=== PATIENT | male | born 1970 | race Two or more races ===

== ENCOUNTER 2018-11-19 10:02 | Inpatient (IN) | payer SELFPAY ==
[~2018-11-19] VITALS: Ht 165.1 cm; Wt 60.3 kg
[2018-11-19] MEDS ORDERED: IV NORMAL SALINE 1000ML BAG 1,000 ML IV ONE (11:00)
[2018-11-19] MEDS ORDERED: MORPHINE SULFATE 2 MG/ML VIAL. IV ONE (11:00)
[2018-11-19] MEDS ORDERED: CLINDAMYCIN 600MG PREMIX 50 ML IV ONE (11:00)
--- NOTE | 2018-11-19 11:03 | PHYS DOC ---
Past Medical History Past Medical History: No Pertinent History Alcohol Use: Occasionally Drug Use: Marijuana Adult General Chief Complaint Chief Complaint: LOWER EXT PAIN HPI HPI Patient is a 48 year old male presents to the ER with right knee swelling for week. The knee is hot to the touch, and painful. 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 Rates his pain a 7 out of 10 in severity and throbbing and sharp. Took Aleve last night Review of Systems Review of Systems Constitutional: Denies fever or chills [] Eyes: Denies change in visual acuity, redness, or eye pain [] HENT: Denies nasal congestion or sore throat [] Respiratory: Denies cough or shortness of breath [] Cardiovascular: No additional information not addressed in HPI [] GI: Denies abdominal pain, nausea, vomiting, bloody stools or diarrhea [] : Denies dysuria or hematuria [] Musculoskeletal: Reports R knee pain Integument: Denies rash or skin lesions [] Neurologic: Denies headache, focal weakness or sensory changes [] Endocrine: Denies polyuria or polydipsia [] Complete systems were reviewed and found to be within normal limits, except as documented in this note. Current Medications Current Medications Current Medications Medications (Trade) Dose Ordered Sig/Amber Start Time Stop Time Status Last Admin Dose Admin Clindamycin Phosphate 50 ml @ 100 mls/hr 1X ONCE 11/19/18 11:00 11/19/18 11:29 DC 11/19/18 11:40 100 MLS/HR Morphine Sulfate (Morphine Sulfate) 2 mg 1X ONCE 11/19/18 11:00 11/19/18 11:02 DC 11/19/18 11:40 2 MG Sodium Chloride 1,000 ml @ 1,000 mls/hr 1X ONCE 11/19/18 11:00 11/19/18 11:59 DC 11/19/18 11:40 1,000 MLS/HR Allergies Allergies Allergies Coded Allergies Type Severity Reaction Last Updated Verified No Known Drug Allergies 11/19/18 No Physical Exam Physical Exam Constitutional: Well developed, well nourished, no acute distress, non-toxic appearance. [] HENT: Normocephalic, atraumatic, bilateral external ears normal, oropharynx moist, no oral exudates, nose normal. [] Eyes: PERRLA, EOMI, conjunctiva normal, no discharge. [] Neck: Normal range of motion, no tenderness, supple, no stridor. [] Cardiovascular:Heart rate regular rhythm, no murmur [] Lungs & Thorax: Bilateral breath sounds clear to auscultation [] Abdomen: Bowel sounds normal, soft, no tenderness, no masses, no pulsatile mas ses. [] Skin: Warm, dry, no erythema, no rash. [] Back: No tenderness, no CVA tenderness. [] Extremities: R knee: anterior tenderness, erythema, ROM intact, edema. Neurologic: Alert and oriented X 3, normal motor function, normal sensory function, no focal deficits noted. [] Psychologic: Affect normal, judgement normal, mood normal. [] Current Patient Data Vital Signs Vital Signs Date Time Temp Pulse Resp B/P (MAP) Pulse Ox O2 Delivery O2 Flow Rate FiO2 11/19/18 10:34 98.4 80 18 101/58 (72) 100 Room Air 98.4 Lab Values Laboratory Tests Test 11/19/18 11:30 White Blood Count 12.5 x10^3/uL (4.0-11.0) H Red Blood Count 3.90 x10^6/uL (4.30-5.70) L Hemoglobin 12.7 g/dL (13.0-17.5) L Hematocrit 37.2 % (39.0-53.0) L Mean Corpuscular Volume 95 fL (79-100) Mean Corpuscular Hemoglobin 32 pg (25-35) Mean Corpuscular Hemoglobin Concent 34 g/dL (31-37) Red Cell Distribution Width 13.9 % (11.5-14.5) Platelet Count 403 x10^3/uL (140-400) H Neutrophils (%) (Auto) 81 % (31-73) H Lymphocytes (%) (Auto) 9 % (24-48) L Monocytes (%) (Auto) 9 % (0-9) Eosinophils (%) (Auto) 1 % (0-3) Basophils (%) (Auto) 0 % (0-3) Neutrophils # (Auto) 10.1 x10^3/uL (1.8-7.7) H Lymphocytes # (Auto) 1.2 x10^3/uL (1.0-4.8) Monocytes # (Auto) 1.1 x10^3/uL (0.0-1.1) Eosinophils # (Auto) 0.1 x10^3/uL (0.0-0.7) Basophils # (Auto) 0.0 x10^3/uL (0.0-0.2) Sodium Level 137 mmol/L (136-145) Potassium Level 4.4 mmol/L (3.5-5.1) Chloride Level 102 mmol/L (98-107) Carbon Dioxide Level 29 mmol/L (21-32) Anion Gap 6 (6-14) Blood Urea Nitrogen 12 mg/dL (8-26) Creatinine 0.7 mg/dL (0.7-1.3) Estimated GFR (Cockcroft-Gault) 120.4 BUN/Creatinine Ratio 17 (6-20) Glucose Level 88 mg/dL (70-99) Lactic Acid Level 0.8 mmol/L (0.4-2.0) Calcium Level 9.3 mg/dL (8.5-10.1) Total Bilirubin 0.3 mg/dL (0.2-1.0) Aspartate Amino Transferase (AST) 26 U/L (15-37) Alanine Aminotransferase (ALT) 23 U/L (16-63) Alkaline Phosphatase 106 U/L (46-116) Total Protein 8.0 g/dL (6.4-8.2) Albumin 2.9 g/dL (3.4-5.0) L Albumin/Globulin Ratio 0.6 (1.0-1.7) L Laboratory Tests 11/19/18 11:30 Laboratory Tests 11/19/18 11:30 EKG EKG [] Radiology/Procedures Radiology/Procedures [][facility] [address] [place], [place] [id number] IMAGING REPORT Signed PATIENT: GERARDO KAY JACCOUNT: [id number] : 1970 LOCATION: ER AGE: 48 SEX: M EXAM STATUS: REG ER ORD. PHYSICIAN: ISACC STEWART APRN REASON: right knee pain, swelling x1 week PROCEDURE: KNEE RIGHT 4V KNEE RIGHT 4V History: Right knee pain and swelling for one week FINDINGS: Moderate soft tissue swelling anterior to the proximal tibia. The distal patellar tendon is poorly defined. There is some density was extends into the anteroinferior infrapatellar fat. No evidence of acute fracture. No dislocation. No aggressive bone destruction. IMPRESSION: 1. Moderate soft tissue swelling anterior to the proximal tibia. Nonspecific, but possibilities include hematoma, or inflammatory or infectious etiology, depending on clinical history. Distal patellar tendon is poorly defined, raising the question of distal patellar tendon injury. MRI could further evaluate as indicated. 2. No evidence of acute fracture or dislocation. Electronically signed by: Isacc Hernandez MD (11/19/2018 11:23 AM) [id number] DICTATED and SIGNED BY: ISACC HERNANDEZ MD DATE: 11/19/18 1123 Course & Med Decision Making Course & Med Decision Making Pertinent Labs and Imaging studies reviewed. (See chart for details) Appears to have cellulitis. Will give IV clindamycin, pain medication, fluids, and obtain labs and x-ray. Discussed with patient, will admit to hospital. He is agreeable. Labs are unremarkable with exception of elevated WBC. Discussed with Dr. Araujo who will admit to hospital at 12:30. Dragon Disclaimer Jai Disclaimer This electronic medical record was generated, in whole or in part, using a voice recognition dictation system. Departure Departure Impression: Primary Impression: Cellulitis Disposition: ADMITTED INPATIENT Admitting Physician: BELLO Condition: STABLE Referrals: NO PCP (PCP) Problem Qualifiers Primary Impression: Cellulitis Site of cellulitis: extremity Site of cellulitis of extremity: lower extremity Laterality: right Qualified Codes: L03.115 - Cellulitis of right lower limb ISACC STEWART APRN Nov 19, 2018 11:03
--- NOTE | 2018-11-19 11:26 | RAD ---
KNEE RIGHT 4V History: Right knee pain and swelling for one week FINDINGS: Moderate soft tissue swelling anterior to the proximal tibia. The distal patellar tendon is poorly defined. There is some density was extends into the anteroinferior infrapatellar fat. No evidence of acute fracture. No dislocation. No aggressive bone destruction. IMPRESSION: 1. Moderate soft tissue swelling anterior to the proximal tibia. Nonspecific, but possibilities include hematoma, or inflammatory or infectious etiology, depending on clinical history. Distal patellar tendon is poorly defined, raising the question of distal patellar tendon injury. MRI could further evaluate as indicated. 2. No evidence of acute fracture or dislocation. Electronically signed by: Isacc Hernandez MD (11/19/2018 11:23 AM) [id number]
[2018-11-19 11:45] LABS: BASO % 0 % (0-3); EOS # 0.1 x10^3/uL (0.0-0.7); EOS % 1 % (0-3); HEMATOCRIT 37.2 % (39.0-53.0); HEMOGLOBIN 12.7 g/dL (13.0-17.5); LYMPH # 1.2 x10^3/uL (1.0-4.8); LYMPH % 9 % (24-48); MEAN CORPUSCULAR HEMOGLOBIN 32 pg (25-35); MEAN CORPUSCULAR HGB CONC 34 g/dL (31-37); MEAN CORPUSCULAR VOLUME 95 fL (79-100); MONO # 1.1 x10^3/uL (0.0-1.1); MONO % 9 % (0-9); NEUT # 10.1 x10^3/uL (1.8-7.7); NEUT % 81 % (31-73); PLATELET COUNT 403 x10^3/uL (140-400); RED CELL DISTRIBUTION WIDTH 13.9 % (11.5-14.5); WHITE BLOOD COUNT 12.5 x10^3/uL (4.0-11.0)
[2018-11-19 11:52] LABS: CALCIUM 9.3 mg/dL (8.5-10.1); CREATININE 0.7 mg/dL (0.7-1.3); GFR 120.4; POTASSIUM 4.4 mmol/L (3.5-5.1)
[2018-11-19 11:58] LABS: ALBUMIN 2.9 g/dL (3.4-5.0); ALBUMIN/GLOBULIN RATIO 0.6 (1.0-1.7); TOTAL BILIRUBIN 0.3 mg/dL (0.2-1.0)
[2018-11-19] MEDS ORDERED: MORPHINE SULFATE 2 MG/ML VIAL. IV PRN (12:45)
[2018-11-19] MEDS ORDERED: ONDANSETRON PF 4 MG/2 ML VIAL. IV PRN (12:45)
[2018-11-19 13:00] VITALS: BP 104/68
--- NOTE | 2018-11-19 13:00 | NUR ---
Arrived to unit by w/c from ER. Alert and oriented x's 4. Unable to stand on right leg. States its painful. Oriented to room and controls. Side rails up x's 2 with call light in reach. Assessment completed. Cont. monitor.
[2018-11-19] MEDS ORDERED: PIP/TAZO PER PHARMACY MC PRN (13:45)
[2018-11-19] MEDS ORDERED: VANCOMYCIN 1.75 GM in IV NORMAL SALINE 500ML BAG 500 ML IV ONE (14:00)
[2018-11-19] MEDS: PIPERACILLIN/TAZOBACTAM 3.375 GM in IV NORMAL SALINE 50ML 50 ML IV SCH ×2 (14:45→23:47)
--- NOTE | 2018-11-19 14:48 | HP ---
ADMIT DATE: 11/19/2018 CHIEF COMPLAINT: Right knee pain and swelling. HISTORY OF PRESENT ILLNESS: The patient is a pleasant, healthy middle-aged male who presents with the above chief complaints. Basically, his right knee is swollen. It is tender to palpation, appears to have some fluid in it. Suspect he might have an abscess or septic joint or pseudogout. We are going to admit the patient and consult Orthopedics and give him some IV antibiotics. PAST MEDICAL HISTORY: Marijuana use. ALLERGIES: None. FAMILY HISTORY: Hypertension. SOCIAL HISTORY: Does not drink, smoke or take drugs other than marijuana. 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 MEDICATIONS: Reviewed, please refer to the MRAD. REVIEW OF SYSTEMS: GENERAL: No history of weight change, weakness or fevers. SKIN: No bruising, hair changes or rashes. EYES: No blurred, double or loss of vision. NOSE AND THROAT: No history of nosebleeds, hoarseness or sore throat. HEART: No history of palpitations, chest pain or shortness of breath on exertion. LUNGS: Denies cough, hemoptysis, wheezing or shortness of breath. GASTROINTESTINAL: Denies changes in appetite, nausea, vomiting, diarrhea or constipation. GENITOURINARY: No history of frequency, urgency, hesitancy or nocturia. NEUROLOGIC: Denies history of numbness, tingling, tremor or weakness. PSYCHIATRIC: No history of panic, anxiety or depression. ENDOCRINE: No history of heat or cold intolerance, polyuria or polydipsia. EXTREMITIES: He complains of right knee pain. PHYSICAL EXAMINATION: VITALS: Within normal limits and are stable. GENERAL: No apparent distress. Alert and oriented. HEENT: Head is normocephalic, atraumatic, pupils were equally round and reactive to light and accommodation. NECK: Supple, no JVD, no thyromegaly was noted. LUNGS: Clear to auscultation in all lung torres without rhonchi or wheezing. HEART: RRR, S1, S2 present. Peripheral pulses intact, no obvious murmurs were noted. ABDOMEN: Soft, nontender. Positive bowel sounds no organomegaly, normal bowel sounds. EXTREMITIES: The right knee is swollen and painful. NEUROLOGIC: Normal speech, normal tone. A & O x3, moves all extremities, no obvious focal deficits. PSYCHIATRIC: Normal affect, normal mood. Stable. SKIN: No ulcerations or rashes, good skin turgor, no jaundice. VASCULAR: Good capillary refill, neurovascular bundle appears to be intact. LABORATORY DATA: White count is 12. ASSESSMENT AND PLAN: Right knee pain, swelling, erythema, suspect an abscess versus cellulitis versus pseudogout. The patient is being admitted. We will consult Orthopedics. Consult Infectious Disease, IV antibiotics, PT, OT, home meds, DVT prophylaxis. MALA CHI DO DR: TREE/tu JOB#: [id number] / [id number]
[2018-11-19 15:00] VITALS: BP 112/73
[2018-11-19] MEDS: VANCOMYCIN PER PHARMACY MC SCH ×2 (15:50→15:54)
--- NOTE | 2018-11-19 16:20 | NUR ---
Pharmacy Vancomycin Dosing Note S:Consulted to monitor and dose vancomycin started 11/19/18. O:GERARDO KAY is a 48 year old M with Cellulitis . Height: 5 feet, 7 inches Weight: 72.936281 kg [place] Body Weight: 66.10 Adjusted Body Weight: 68.66 Dosing Weight: Actual Other Antibiotics: ZOSYN LABS: Last BUN: Last Creatinine: 0.7 Creatinine Clearance: 125 mL/min Last WBC: 12.5 Last Procalcitonin: Tmax (past 24 hours): Microbiology: I/O: 1050 Drug Levels: Last level: on at Last dose given 11/19/18 at 1520 Vancomycin Dosing: Loading Dose: 1750 mg x1 Dosing Weight: Actual Target Trough: 10-20 A: Based on: WEIGHT AND RENAL FUNCTION, VANCOMYCIN 1.75GM IV BOLUS; THEN, P: 1. Begin Vancomycin 1000 mg IV q8h 2. Follow up Trough level on 11/20/18 at 2300 3. Pharmacy will continue to monitor, follow and adjust therapy as needed. GENNARO LANDIN RPH, 11/19/18 [id number]
[2018-11-19 19:00] VITALS: BP 104/64
[2018-11-19] MEDS: LACTOBACILLUS RHAMNOSUS GG 1 CAPSULE. PO SCH (21:06)
[2018-11-19 23:00] VITALS: BP 98/54
[2018-11-20] VITALS (7 sets, daily range): BP systolic 90–143; BP diastolic 46–84
[2018-11-20] MEDS: VANCOMYCIN 1 GM in IV NORMAL SALINE 250ML 250 ML IV SCH ×3 (00:23→15:46)
[2018-11-20] MEDS: PIPERACILLIN/TAZOBACTAM 3.375 GM in IV NORMAL SALINE 50ML 50 ML IV SCH ×3 (05:31→18:33)
[2018-11-20] MEDS: LACTOBACILLUS RHAMNOSUS GG 1 CAPSULE. PO SCH ×2 (10:32→20:42)
[2018-11-20] MEDS: VANCOMYCIN PER PHARMACY MC SCH (11:39)
--- NOTE | 2018-11-20 12:55 | PDOC ---
[facility] PROGRESS NOTE Chief Complaint Chief Complaint Sepsis H/O marijuana use History of Present Illness History of Present Illness 11/19/18 Pt seen and examined at bedside Pt sitting up in bed and with MARY WHITAKER RN Vitals/I&O Vitals/I&O: Vital Signs Date Time Temp Pulse Resp B/P (MAP) Pulse Ox O2 Delivery O2 Flow Rate FiO2 11/20/18 10:27 98.6 69 24 143/84 (103) 100 Room Air 98.6 I & O 11/19/18 11/19/18 11/20/18 14:59 22:59 06:59 Intake Total 1050 ml 240 ml 670 ml Balance 1050 ml 240 ml 670 ml Physical Exam General: Alert, Oriented X3, Cooperative, No acute distress Heart: Regular rate, Normal S1 Lungs: Clear Abdomen: Normal bowel sounds, No tenderness, No masses Extremities: No clubbing, No cyanosis, No edema Skin: No rashes, No significant lesion Review of Systems Review of Systems: Denies [place] Denies vision change Assessment and Plan Assessmemt and Plan Problems Medical Problems: (1) Cellulitis Status: Acute Assessment Sepsis H/O marijuana use Plan IV ABX IV fluid support Wound care Encouraged marijuana cessation PT/OT DVT prophylaxis Continue home meds Appreciate subspecialty input Comment Review of Relevant I have reviewed the following items unique (where applicable) has been applied. Medications: Current Medications Medications (Trade) Dose Ordered Sig/Amber Route PRN Reason Start Time Stop Time Status Last Admin Dose Admin Vancomycin HCl (Vanco Per Pharmacy) 1 each PRN DAILY 11/19/18 13:45 11/20/18 11:39 Vancomycin HCl 1.75 gm/Sodium Chloride 500 ml @ 250 mls/hr 1X ONCE IV 11/19/18 14:00 11/19/18 15:59 DC 11/19/18 15:26 Piperacillin Sod/ Tazobactam Sod 3.375 gm/Sodium Chloride 50 ml @ 100 mls/hr Q6HRS IV 11/19/18 14:00 11/20/18 05:31 Vancomycin HCl 1 gm/Sodium Chloride 250 ml @ 250 mls/hr Q8H IV 11/19/18 23:30 11/20/18 07:09 Lactobacillus Rhamnosus (Culturelle) 1 cap BID PO 11/19/18 21:00 11/20/18 10:32 CASTMALA GARZON III DO Nov 20, 2018 12:55
--- NOTE | 2018-11-20 13:45 | PDOC ---
Infectious Disease Note Vital Sign Vital Signs Vital Signs Date Time Temp Pulse Resp B/P (MAP) Pulse Ox O2 Delivery O2 Flow Rate FiO2 11/20/18 10:27 98.6 69 24 143/84 (103) 100 Room Air 98.6 Objective Assessment Cellulitis right knee Leukocytosis Tobaccoism Plan Plan of Care Vanc and Zosyn Probiotics Awaiting ortho evaluation Monitor renal function closely Repeat CBC in am Monitor knee Thank you [id number] Patient seen and examined. Chart reviewed in detail. Case discussed with STEAM PIPE FITTER. Agree with above plan. ABHAY LANDRUM APRN Nov 20, 2018 13:45 MARCUS LOCO MD Nov 20, 2018 20:31
--- NOTE | 2018-11-20 14:51 | CONS ---
DATE OF CONSULTATION: 11/20/2018 REFERRED BY: Isacc Burroughs APRN REASON FOR CONSULTATION: Cellulitis. HISTORY OF PRESENT ILLNESS: This patient is a 48-year-old male with no significant past medical history, who work up with right knee pain, swelling, redness and decreased range of motion a week ago. He self-treated with [id number] pain medications and Icy Hot. With no improvement he presented to the ER yesterday for further evaluation. X-ray of the knee showed moderate soft tissue swelling anterior to the proximal tibia. Distal patellar tendon poorly defined. No evidence of acute fracture or dislocation. His is dosed vancomycin and Zosyn. 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 He denies injury to his right knee. Denies history of skin infections or recent antibiotics. Denies fevers, chills, sweats or body aches. He noticed a small pimple develop about his knee that spontaneously drained. PAST MEDICAL HISTORY: None significant. PAST SURGICAL HISTORY: Tooth extraction. FAMILY HISTORY: Noncontributory. SOCIAL HISTORY: The patient is . He is a smoker. ALLERGIES: No known drug allergies. MEDICATIONS: Vancomycin, Zosyn, probiotics, morphine, and Zofran. REVIEW OF SYSTEMS: Per HPI, otherwise all other review of systems are negative. PHYSICAL EXAMINATION: VITAL SIGNS: Temperature is 98.6, blood pressure 143/84, heart rate 69, respiratory rate 24, pulse oximetry 100% on room air. BMI 27. GENERAL: The patient is slightly propped up in bed, alert, no apparent distress. HEENT: Pupils equally round, reactive. Normal conjunctivae. Oropharynx pink and moist. NECK: Supple. LUNGS: Clear to auscultation. CARDIAC: S1, S2. ABDOMEN: Soft, nontender with bowel sounds present. EXTREMITIES: No gross edema or cyanosis. Right knee is red, extending to the midcalf, swollen, warm, tender with a small anterior blister and limited flexion. SKIN: Warm to touch. No signs of rash. NEUROLOGIC: Alert and oriented x 3. LABORATORY AND DIAGNOSTIC DATA: Recent WBC 12.5, hemoglobin 12.7, platelets 403,000. Electrolytes are unremarkable. Creatinine 0.7, BUN 12. Lactic acid 0.8, glucose 88, total bilirubin 0.3, AST 26, ALT 23, albumin 2.9. Knee x-ray per HPI. IMPRESSION: 1. Cellulitis of the right knee. 2. Leukocytosis. 3. Tobaccoism. PLAN: Continue vancomycin and Zosyn along with probiotics. Awaiting ortho evaluation. Continue to monitor renal function closely. We will repeat a CBC in the a.m. Monitor knee. Thank you Isacc Burroughs APRN for asking us to participate in this patient's care. Should you have further questions or concerns, please call. MARCUS LOCO MD DR: CHRISTY/tu JOB#: [id number] / [id number] EJ
--- NOTE | 2018-11-20 17:33 | PDOC2 ---
CONSULT Date of Consult Date of Consult DATE: 11/20/18 TIME: 17:28 Reason for Consult Reason for Consult: Right knee swelling and pain Identification/Chief Complaint Chief Complaint Right knee swelling and pain Source Source: Chart review, Patient History of Present Illness Reason for Visit: Patient is a 48 year old male admitted from the ER with right knee swelling for week. The knee is hot to the touch, and painful. 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 Rated his pain a 7 out of 10 in severity and throbbing and sharp in ER. He is on intravenous antibiotics now but still has pain and swelling at the front of the right knee, and some difficulty moving the knee. Current Problem List Problem List Problems Medical Problems: (1) Cellulitis Status: Acute Current Medications Current Medications Current Medications Morphine Sulfate (Morphine Sulfate) 2 mg 1X ONCE IV Last administered on 11/19/18at 11:40; Start 11/19/18 at 11:00; Stop 11/19/18 at 11:02; Status DC Sodium Chloride 1,000 ml @ 1,000 mls/hr 1X ONCE IV Last administered on 11/19at 11:40; Start 11/19/18 at 11:00; Stop 11/19/18 at 11:59; Status DC Clindamycin Phosphate 50 ml @ 100 mls/hr 1X ONCE IV Last administered on 11/19/18at 11:40; Start 11/19/18 at 11:00; Stop 11/19/18 at 11:29; Status DC Ondansetron HCl (Zofran) 4 mg PRN Q8HRS PRN IV NAUSEA/VOMITING; Start 11/19/18 at 12:45; Stop 11/20/18 at 12:44; Status DC Morphine Sulfate (Morphine Sulfate) 2 mg PRN Q2HR PRN IV PAIN Last administered on 11/19/18at 21:07; Start 11/19/18 at 12:45; Stop 11/20/18 at 12:44; Status DC Vancomycin HCl (Vanco Per Pharmacy) 1 each PRN DAILY MC Last administered on 11/20/18at 11:39; Start 11/19/18 at 13:45 Piperacillin Sod/ Tazobactam Sod (Zosyn Per Pharmacy) 1 each PRN DAILY PRN MC SEE COMMENTS; Start 11/19/18 at 13:45 Vancomycin HCl 1.75 gm/Sodium Chloride 500 ml @ 250 mls/hr 1X ONCE IV Last administered on 11/19/18at 15:26; Start 11/19/18 at 14:00; Stop 11/19/18 at 15:59; Status DC Piperacillin Sod/ Tazobactam Sod 3.375 gm/Sodium Chloride 50 ml @ 100 mls/hr Q6HRS IV Last administered on 11/20/18at 13:37; Start 11/19/18 at 14:00 Vancomycin HCl 1 gm/Sodium Chloride 250 ml @ 250 mls/hr Q8H IV Last administered on 11/20/18at 15:46; Start 11/19/18 at 23:30 Vancomycin HCl (Vancomycin Trough Level) 1 each 1X ONCE MC ; Start 11/20/18 at 23:00; Stop 11/20/18 at 23:01 Lactobacillus Rhamnosus (Culturelle) 1 cap BID PO Last administered on 11/20/18at 10:32; Start 11/19/18 at 21:00 Allergies Allergies: Coded Allergies: No Known Drug Allergies (Unverified , 11/19/18) Physical Exam General: Alert, Cooperative HEENT: Atraumatic Lungs: Normal air movement Heart: Regular rate Abdomen: Soft Extremities: Other (the right knee has swelling at the tibial tubercle and distal patellar tendon. The extensor mechanism is intact and he was able to flex the knee to 90� and then do active extension with some pain but no major difficu lty. There is no disruption of the tendon clinically. There is an infected infrapatellar bursitis clinically with fullness, tenderness, redness, warmth, slight erythema but no drainage. There is no open wound. Is no knee effusion. There is no knee joint tenderness. The gross alignment of the right knee is normal.) MUSCULOSKELETAL: Abnormal exam of right (knee as above) Vitals VITALS Vital Signs Date Time Temp Pulse Resp B/P (MAP) Pulse Ox O2 Delivery O2 Flow Rate FiO2 11/20/18 15:00 99.2 83 24 98/54 (69) 98 Room Air 99.2 Labs Labs Laboratory Tests Test 11/19/18 11:30 White Blood Count 12.5 x10^3/uL (4.0-11.0) Red Blood Count 3.90 x10^6/uL (4.30-5.70) Hemoglobin 12.7 g/dL (13.0-17.5) Hematocrit 37.2 % (39.0-53.0) Mean Corpuscular Volume 95 fL (79-100) Mean Corpuscular Hemoglobin 32 pg (25-35) Mean Corpuscular Hemoglobin Concent 34 g/dL (31-37) Red Cell Distribution Width 13.9 % (11.5-14.5) Platelet Count 403 x10^3/uL (140-400) Neutrophils (%) (Auto) 81 % (31-73) Lymphocytes (%) (Auto) 9 % (24-48) Monocytes (%) (Auto) 9 % (0-9) Eosinophils (%) (Auto) 1 % (0-3) Basophils (%) (Auto) 0 % (0-3) Neutrophils # (Auto) 10.1 x10^3/uL (1.8-7.7) Lymphocytes # (Auto) 1.2 x10^3/uL (1.0-4.8) Monocytes # (Auto) 1.1 x10^3/uL (0.0-1.1) Eosinophils # (Auto) 0.1 x10^3/uL (0.0-0.7) Basophils # (Auto) 0.0 x10^3/uL (0.0-0.2) Sodium Level 137 mmol/L (136-145) Potassium Level 4.4 mmol/L (3.5-5.1) Chloride Level 102 mmol/L (98-107) Carbon Dioxide Level 29 mmol/L (21-32) Anion Gap 6 (6-14) Blood Urea Nitrogen 12 mg/dL (8-26) Creatinine 0.7 mg/dL (0.7-1.3) Estimated GFR (Cockcroft-Gault) 120.4 BUN/Creatinine Ratio 17 (6-20) Glucose Level 88 mg/dL (70-99) Lactic Acid Level 0.8 mmol/L (0.4-2.0) Calcium Level 9.3 mg/dL (8.5-10.1) Total Bilirubin 0.3 mg/dL (0.2-1.0) Aspartate Amino Transf (AST/SGOT) 26 U/L (15-37) Alanine Aminotransferase (ALT/SGPT) 23 U/L (16-63) Alkaline Phosphatase 106 U/L (46-116) Total Protein 8.0 g/dL (6.4-8.2) Albumin 2.9 g/dL (3.4-5.0) Albumin/Globulin Ratio 0.6 (1.0-1.7) Images Images Report reviewed, images independently reviewed. Soft tissue swelling at the distal patellar tendon region, consistent with the clinical exam. Again the radiologist was concerned about the integrity of the patellar tendon a stubby x- ray findings, angry there is abnormality radiographically, however clinically the tendon is not disrupted. [facility] [address] [place] [address] IMAGING REPORT Signed PATIENT: GERARDO KAY ACCOUNT: [id number] : 1970 LOCATION: ER AGE: 48 SEX: M EXAM STATUS: REG ER ORD. PHYSICIAN: PRIMO STEWART APRN REASON: right knee pain, swelling x1 week PROCEDURE: KNEE RIGHT 4V KNEE RIGHT 4V History: Right knee pain and swelling for one week FINDINGS: Moderate soft tissue swelling anterior to the proximal tibia. The distal patellar tendon is poorly defined. There is some density was extends into the anteroinferior infrapatellar fat. No evidence of acute fracture. No dislocation. No aggressive bone destruction. IMPRESSION: 1. Moderate soft tissue swelling anterior to the proximal tibia. Nonspecific, but possibilities include hematoma, or inflammatory or infectious etiology, depending on clinical history. Distal patellar tendon is poorly defined, raising the question of distal patellar tendon injury. MRI could further evaluate as indicated. 2. No evidence of acute fracture or dislocation. Electronically signed by: Primo Hernandez MD (11/19/2018 11:23 AM) [facility] DICTATED and SIGNED BY: PRIMO HERNANDEZ MD DATE: 11/19/18 1123 Assessment/Plan Assessment/Plan M70.51 Other bursitis of knee, right knee L02.435 Carbuncle of right lower limb This is an acute infrapatellar bursitis of the right knee, and based on examination and lab work is likely an infected/septic bursa. I recommended surgical drainage. I spoke to the patient about the potential risks of ongoing infection and need for further debridement. I explained that I will take operative cultures to assist with antibiotic management. I discussed with him potential other risks such as tendon disruption, scarring, bleeding, neurovasc ular injury, or other potential risks, but the risks of surgery are low and the benefits are high. He agrees with surgical management. I will plan for surgery tomorrow morning. I will take operative cultures. ELLIOTT ROSE MD Nov 20, 2018 17:33
[2018-11-20 22:31] LABS: VANC TR 33.7 mcg/mL (10.0-20.0)
[2018-11-21] MEDS: PIPERACILLIN/TAZOBACTAM 3.375 GM in IV NORMAL SALINE 50ML 50 ML IV SCH ×5 (00:27→23:52)
[2018-11-21 03:12] VITALS: BP 100/62
[2018-11-21 04:50] LABS: HEMATOCRIT 34.5 % (39.0-53.0); HEMOGLOBIN 11.7 g/dL (13.0-17.5); RED BLOOD COUNT 3.59 x10^6/uL (4.30-5.70); RED CELL DISTRIBUTION WIDTH 13.7 % (11.5-14.5); WHITE BLOOD COUNT 13.1 x10^3/uL (4.0-11.0)
[2018-11-21] MEDS ORDERED: VANCOMYCIN RANDOM LEVEL. MC ONE (05:00)
[2018-11-21 05:46] LABS: CREATININE 0.9 mg/dL (0.7-1.3); GFR 90.1
[2018-11-21] MEDS: VANCOMYCIN PER PHARMACY MC SCH ×2 (06:18→14:38)
--- NOTE | 2018-11-21 06:18 | NUR ---
Pharmacy Vancomycin Dosing Note S:Consulted to monitor and dose vancomycin started 11/19/18. O:GERARDO KAY is a 48 year old M with Cellulitis . Height: 5 feet, 5 inches Weight: 73.014161 kg [place] Body Weight: 61.50 Adjusted Body Weight: 66.46 Dosing Weight: Actual Other Antibiotics: ZOSYN LABS: Last BUN: 12 Last Creatinine: 0.9 Creatinine Clearance: 94 mL/min Last WBC: 13.1 Last Procalcitonin: Tmax (past 24 hours): 99.8 Microbiology: - I/O: 1960/- Drug Levels: Last Random level: 9.8 on 11/21/18 at 0500 Last dose given 11/21/18 at 0700 Vancomycin Dosing: Loading Dose: 1750 mg x1 Dosing Weight: Actual Target Trough: 10-20 A: Based on: 12 HOUR LEVEL P: 1. Begin Vancomycin 1000 mg IV q12h 2. Follow up Trough level IF NEEDED 3. Pharmacy will continue to monitor, follow and adjust therapy as needed. TL EUGENE RPH, 11/21/18617 Signed: 11/21/18 at 18 by TL EUGENE RPH PHA
[2018-11-21] MEDS: VANCOMYCIN 1 GM in IV NORMAL SALINE 250ML 250 ML IV SCH ×2 (06:35→17:22)
[2018-11-21] MEDS ORDERED: IV RINGERS,LACTATED 1000ML 1,000 ML IV SCH (06:36)
[2018-11-21] MEDS ORDERED: ONDANSETRON PF 4 MG/2 ML VIAL. IV PRN (06:45)
[2018-11-21] MEDS ORDERED: fentaNYL PF VIAL 100 MCG/2 ML VIAL IV PRN ×2 (06:45)
[2018-11-21] MEDS ORDERED: PROCHLORPERAZINE 10 MG/2 ML VIAL. IV PRN (06:45)
[2018-11-21] MEDS ORDERED: HYDROmorphone 2 MG/ML VIAL IV PRN (06:45)
[2018-11-21] MEDS ORDERED: MORPHINE SULFATE 2 MG/ML VIAL. IV PRN (06:45)
[2018-11-21] MEDS ORDERED: BUPIVACAINE MPF 0.25% 30 ML VIAL. ONE (06:50)
[2018-11-21] MEDS ORDERED: DEXAMETHASONE SOD PHOS 4 MG/ML VIAL ONE (07:23)
[2018-11-21] MEDS ORDERED: PROPOFOL 20 ML IV ONE (07:23)
[2018-11-21] MEDS ORDERED: LIDOCAINE 2% PF 5 ML VIAL. ONE (07:23)
[2018-11-21] MEDS ORDERED: ONDANSETRON PF 4 MG/2 ML VIAL. ONE (07:23)
[2018-11-21] MEDS ORDERED: fentaNYL PF VIAL 100 MCG/2 ML VIAL ONE (08:12)
[2018-11-21] MEDS ORDERED: SEVOFLURANE 16 TO 30 MINUTES. IH ONE (08:29)
--- NOTE | 2018-11-21 09:03 | PDOC4 ---
Operative Note Operative Note Date of Procedure: November 21, 2018 Pre-Op Diagnosis: infrapatellar bursa abscess right knee Post-Op Diagnosis: infrapatellar bursa abscess right knee Procedure: Incision and drainage, deep abscess, bursa, or hematoma, thigh or knee region, CPT 81299 Surgeon: Elliott Sun MD Anesthesia: General EBL: 25 mL Specimens Obtained: swab cultures for aerobic and anaerobic culture Complications: none Drains: Iodoform packing Findings: Purulent fluid collection approximately 20 mL�s of pus at the intrapatellar bursa over the tibial tubercle Indications for Procedure: The patient is a 48-year-old man who does erik. He presented with swelling at the front of the knee, tenderness, and pain. Yesterday the skin was intact but this has spontaneously begun to drain overnight. He has an infected infrapatellar bursa on examination. I recommended incision and drainage with operative cultures. We discussed the potential risks of ongoing infection, need for additional surgeries, and other potential surgical or anesthetic complications. I would not recommend nonsurgical treatment for his situation. The patient and I discussed the risks, benefits and alternatives of surgery. All of his questions about surgery were answered and he desired to proceed. Procedure in Detail: The patient was identified in the preoperative holding area. The correct right knee was marked by me. The patient was taken to the operating room where general anesthesia was used. The patient was positioned supine on the operating table. Preoperative antibiotics were given intravenously . A timeout procedure was performed. No tourniquet was used. The limb was prepared in sterile fashion with Betadine. Sterile drapes were applied, including an impervious stockinette over the lower limb. A 5 cm midline incision was made centered over the tibial tubercle and the center of the fluctuant bursa. Immediate purulent drainage was noted. Cultures were taken. I used digital dissection to break up the abscess cavity. I then used the Ayesha interpulse carpet loom fixer, and I first irrigated 2 L of saline. The skin was reprepped with Betadine, and the abscess cavity was rinsed with Betadine. I then used the [place] interpulse carpet loom fixer, and a final third liter of saline was irrigated. Bovie electrocautery was used for hemostasis. The incision was loosely reapproximated proximal and distally, with 2-0 nylon suture, leaving a central opening for packing. I then packed about 6 feet of � inch iodoform into the abscess cavity for later removal. Xeroform, and a sterile dressing were applied including 4 x 4�s, ABDs, soft roll, and Regan wrap. The patient tolerated the procedure well. There were no apparent complications. The plan is to remove approximately 1 foot of iodoform packing daily, and do not repack. ELLIOTT SUN MD Nov 21, 2018 09:03
[2018-11-21] MEDS ORDERED: HYDROcodone/APAP 7.5/325MG 1 TAB TABLET PO PRN (09:15)
[2018-11-21] MEDS: LACTOBACILLUS RHAMNOSUS GG 1 CAPSULE. PO SCH ×2 (09:39→21:03)
--- NOTE | 2018-11-21 10:17 | PDOC ---
Infectious Disease Note Subjective Subjective s/p I and D Feeling better Less knee pain No F/C/N/V/SOA ROS ROS per HPI Vital Sign Vital Signs Vital Signs Date Time Temp Pulse Resp B/P (MAP) Pulse Ox O2 Delivery O2 Flow Rate FiO2 11/21/18 09:05 96.9 71 20 110/71 98 Room Air 96.9 11/21/18 08:49 10 Physical Exam PHYSICAL EXAM GENERAL: Propped up in bed, alert, smiling HEENT: Pupils equally round, reactive. Normal conjunctivae. Oropharynx pink and moist. NECK: Supple. LUNGS: Clear to auscultation. CARDIAC: S1, S2. ABDOMEN: Soft, nontender with bowel sounds present. EXTREMITIES: No gross edema or cyanosis. Post-op dressing right knee in place. DP palpable SKIN: Warm to touch. No signs of rash. NEUROLOGIC: Alert and answering questions appropriately Labs Lab Laboratory Tests Test 11/20/18 21:30 11/21/18 04:30 Vancomycin Level Trough 33.7 mcg/mL (10.0-20.0) Vancomycin Last Dose Date 11/20/18 Vancomycin Last Dose Time 1530 White Blood Count 13.1 x10^3/uL (4.0-11.0) Red Blood Count 3.59 x10^6/uL (4.30-5.70) Hemoglobin 11.7 g/dL (13.0-17.5) Hematocrit 34.5 % (39.0-53.0) Mean Corpuscular Volume 96 fL (79-100) Mean Corpuscular Hemoglobin 33 pg (25-35) Mean Corpuscular Hemoglobin Concent 34 g/dL (31-37) Red Cell Distribution Width 13.7 % (11.5-14.5) Platelet Count 398 x10^3/uL (140-400) Creatinine 0.9 mg/dL (0.7-1.3) Estimated GFR (Cockcroft-Gault) 90.1 Random Vancomycin Level 9.8 mcg/mL Objective Assessment Right knee cellulitis and bursa abscess s/p I and D, 11/21 Leukocytosis Tobaccoism Plan Plan of Care Vanc per pharmacy and Zosyn s/p pre-op steroids Monitor renal function closely Trough 33.7 Probiotics f/u intra-op cultures Local wound care as directed Patient seen and examined. Chart reviewed in detail. Case discussed with ADMINISTRATIVE SUPPORT SPECIALIST. Agree with above plan. ABHAY LANDRUM APRN Nov 21, 2018 10:17 MARCUS LOCO MD Nov 21, 2018 21:32
[2018-11-21 11:00] VITALS: BP 98/59
--- NOTE | 2018-11-21 14:22 | PDOC ---
[employer] PROGRESS NOTE Chief Complaint Chief Complaint Sepsis H/O marijuana use History of Present Illness History of Present Illness 11/21/18 Pt seen and examined lying in bed Had bursa of lower extremity drained; wound CDI JULIANNE RN Chart reviewed 11/19/18 Pt seen and examined at bedside Pt sitting up in bed and with NAD JULIANNE RN Vitals/I&O Vitals/I&O: Vital Signs Date Time Temp Pulse Resp B/P (MAP) Pulse Ox O2 Delivery O2 Flow Rate FiO2 11/21/18 11:00 98.2 71 18 98/59 (72) 97 Room Air 98.2 11/21/18 08:49 10 I & O 11/20/18 11/20/18 11/21/18 14:59 22:59 06:59 Intake Total 420 ml 430 ml Balance 420 ml 430 ml Physical Exam Physical Exam: GENERAL: Propped up in bed, alert, smiling HEENT: Pupils equally round, reactive. Normal conjunctivae. Oropharynx pink and moist. NECK: Supple. LUNGS: Clear to auscultation. CARDIAC: S1, S2. ABDOMEN: Soft, nontender with bowel sounds present. EXTREMITIES: No gross edema or cyanosis. Post-op dressing right knee in place. DP palpable SKIN: Warm to touch. No signs of rash. NEUROLOGIC: Alert and answering questions appropriately General: Alert, Oriented X3, Cooperative, No acute distress Heart: Regular rate Lungs: Clear Abdomen: Soft Extremities: Other (the right knee has swelling at the tibial tubercle and distal patellar tendon. The extensor mechanism is intact and he was able to flex the knee to 90� and then do active extension with some pain but no major difficulty. There is no disruption of the tendon clinically. There is an infected infrapatellar bursitis clinically with fullness, tenderness, redness, warmth, slight erythema but no drainage. There is no open wound. Is no knee effusion. There is no knee joint tenderness. The gross alignment of the right knee is normal.) Skin: No rashes, No significant lesion Labs Labs: Laboratory Tests Test 11/20/18 21:30 11/21/18 04:30 Vancomycin Level Trough 33.7 mcg/mL (10.0-20.0) Vancomycin Last Dose Date 11/20/18 Vancomycin Last Dose Time 1530 White Blood Count 13.1 x10^3/uL (4.0-11.0) Red Blood Count 3.59 x10^6/uL (4.30-5.70) Hemoglobin 11.7 g/dL (13.0-17.5) Hematocrit 34.5 % (39.0-53.0) Mean Corpuscular Volume 96 fL (79-100) Mean Corpuscular Hemoglobin 33 pg (25-35) Mean Corpuscular Hemoglobin Concent 34 g/dL (31-37) Red Cell Distribution Width 13.7 % (11.5-14.5) Platelet Count 398 x10^3/uL (140-400) Creatinine 0.9 mg/dL (0.7-1.3) Estimated GFR (Cockcroft-Gault) 90.1 Random Vancomycin Level 9.8 mcg/mL Review of Systems Review of Systems: No co acute pain No co SOB Assessment and Plan Assessmemt and Plan Problems Medical Problems: (1) Cellulitis Status: Acute Assessment Sepsis H/O marijuana use Plan Continue IV vancomycin IV fluids Encouraged marijuana cessation Wound care PT/OT DVT prophylaxis home meds Appreciate subspecialty input Comment Review of Relevant I have reviewed the following items unique (where applicable) has been applied. Medications: Current Medications Medications (Trade) Dose Ordered Sig/Amber Route PRN Reason Start Time Stop Time Status Last Admin Dose Admin Vancomycin HCl (Vancomycin Trough Level) 1 each 1X ONCE 11/20/18 23:00 11/20/18 23:01 DC 11/21/18 00:32 Vancomycin HCl (Vancomycin Random Level) 1 each 1X ONCE 11/21/18 05:00 11/21/18 05:01 DC 11/21/18 06:22 Vancomycin HCl 1 gm/Sodium Chloride 250 ml @ 250 mls/hr Q12H IV 11/21/18 06:00 11/21/18 06:35 Ringer's Solution 1,000 ml @ 30 mls/hr Q24H IV 11/21/18 06:36 11/21/18 18:35 11/21/18 09:04 MALA CHI III DO Nov 21, 2018 14:22
--- NOTE | 2018-11-21 14:23 | NUR ---
Pt arrived back on unit from procedure at approx 0920. Pt resting comfortably with R leg elevated on a pillow. Pt has no complaints at this time. Will continue to monitor pt.
--- NOTE | 2018-11-21 14:24 | NUR ---
notified directly of positive sepsis screening. No new orders received. Pt currently on IV antibiotics. Will continue to monitor pt.
[2018-11-21 15:00] VITALS: BP 88/52
[2018-11-21 19:00] VITALS: BP 93/58
[2018-11-21 23:00] VITALS: BP 98/63
[2018-11-22 03:00] VITALS: BP 91/60
[2018-11-22] MEDS: PIPERACILLIN/TAZOBACTAM 3.375 GM in IV NORMAL SALINE 50ML 50 ML IV SCH ×3 (05:13→16:55)
[2018-11-22] MEDS: VANCOMYCIN 1 GM in IV NORMAL SALINE 250ML 250 ML IV SCH ×2 (05:59→18:00)
[2018-11-22 07:00] VITALS: BP 97/64
--- NOTE | 2018-11-22 07:55 | PDOC ---
PROGRESS NOTES Chief Complaint Chief Complaint Sepsis Right knee infrapatellar bursa abscess s/p I&D 11/21/18 H/O marijuana use History of Present Illness History of Present Illness Mr Gonzalez is a 48yo M admitted with right knee pain. S/p I&D of infrapatellar bursa abscess on 11/21/18. Seen and examined bedside. He c/o some constipation. Pain is better controlled. ROM of his right knee is a bit better. No CP or SOB. D/w ID to continue empiric antibiotics, await intraoperative culture results. 11/21/18 Pt seen and examined lying in bed Had bursa of lower extremity drained operatively per ; wound CDI DW RN Chart reviewed 11/19/18 Pt seen and examined at bedside Pt sitting up in bed and with NAD JULIANNE RN Vitals Vitals Vital Signs Date Time Temp Pulse Resp B/P (MAP) Pulse Ox O2 Delivery O2 Flow Rate FiO2 11/22/18 03:00 97.7 62 18 91/60 (70) 98 Room Air 97.7 11/21/18 08:49 10 Physical Exam Physical Exam GENERAL: Propped up in bed, alert, smiling HEENT: Pupils equally round, reactive. Normal conjunctivae. Oropharynx pink and moist. NECK: Supple. LUNGS: Clear to auscultation. CARDIAC: S1, S2. ABDOMEN: Soft, nontender with bowel sounds present. EXTREMITIES: No gross edema or cyanosis. Post-op dressing right knee in place. DP palpable SKIN: Warm to touch. No signs of rash. NEUROLOGIC: Alert and answering questions appropriately General: Alert, Oriented X3, Cooperative, No acute distress Heart: Regular rate Lungs: Clear Abdomen: Soft Extremities: Other (the right knee has swelling at the tibial tubercle and distal patellar tendon. The extensor mechanism is intact and he was able to flex the knee to 90� and then do active extension with some pain but no major difficulty. There is no disruption of the tendon clinically. There is an infected infrapatellar bursitis clinically with fullness, tenderness, redness, warmth, slight erythema but no drainage. There is no open wound. Is no knee effusion. There is no knee joint tenderness. The gross alignment of the right knee is normal.) Skin: No rashes, No significant lesion Assessment and Plan Assessmemt and Plan Problems Medical Problems: (1) Cellulitis Status: Acute Comment Review of Relevant I have reviewed the following items unique (where applicable) has been applied. Labs Laboratory Tests Test 11/20/18 21:30 11/21/18 04:30 Vancomycin Level Trough 33.7 mcg/mL (10.0-20.0) Vancomycin Last Dose Date 11/20/18 Vancomycin Last Dose Time 1530 White Blood Count 13.1 x10^3/uL (4.0-11.0) Red Blood Count 3.59 x10^6/uL (4.30-5.70) Hemoglobin 11.7 g/dL (13.0-17.5) Hematocrit 34.5 % (39.0-53.0) Mean Corpuscular Volume 96 fL (79-100) Mean Corpuscular Hemoglobin 33 pg (25-35) Mean Corpuscular Hemoglobin Concent 34 g/dL (31-37) Red Cell Distribution Width 13.7 % (11.5-14.5) Platelet Count 398 x10^3/uL (140-400) Creatinine 0.9 mg/dL (0.7-1.3) Estimated GFR (Cockcroft-Gault) 90.1 Random Vancomycin Level 9.8 mcg/mL Medications Current Medications Morphine Sulfate (Morphine Sulfate) 2 mg 1X ONCE IV Last administered on 11/19/18at 11:40; Start 11/19/18 at 11:00; Stop 11/19/18 at 11:02; Status DC Sodium Chloride 1,000 ml @ 1,000 mls/hr 1X ONCE IV Last administered on 11/19/18at 11:40; Start 11/19/18 at 11:00; Stop 11/19/18 at 11:59; Status DC Clindamycin Phosphate 50 ml @ 100 mls/hr 1X ONCE IV Last administered on 11/19/18at 11:40; Start 11/19/18 at 11:00; Stop 11/19/18 at 11:29; Status DC Ondansetron HCl (Zofran) 4 mg PRN Q8HRS PRN IV NAUSEA/VOMITING; Start 11/19/18 at 12:45; Stop 11/20/18 at 12:44; Status DC Morphine Sulfate (Morphine Sulfate) 2 mg PRN Q2HR PRN IV PAIN Last administered on 11/19/18at 21:07; Start 11/19/18 at 12:45; Stop 11/20/18 at 12:44; Status DC Vancomycin HCl (Vanco Per Pharmacy) 1 each PRN DAILY MC Last administered on 11/21/18at 14:38; Start 11/19/18 at 13:45 Piperacillin Sod/ Tazobactam Sod (Zosyn Per Pharmacy) 1 each PRN DAILY PRN MC SEE COMMENTS; Start 11/19/18 at 13:45 Vancomycin HCl 1.75 gm/Sodium Chloride 500 ml @ 250 mls/hr 1X ONCE IV Last administered on 11/19/18at 15:26; Start 11/19/18 at 14:00; Stop 11/19/18 at 15:59; Status DC Piperacillin Sod/ Tazobactam Sod 3.375 gm/Sodium Chloride 50 ml @ 100 mls/hr Q6HRS IV Last administered on 11/22/18at 05:13; Start 11/19/18 at 14:00 Vancomycin HCl 1 gm/Sodium Chloride 250 ml @ 250 mls/hr Q8H IV Last administered on 11/20/18at 15:46; Start 11/19/18 at 23:30; Stop 11/20/18 at 22: 56; Status DC Vancomycin HCl (Vancomycin Trough Level) 1 each 1X ONCE MC Last administered on 11/21/18at 00:32; Start 11/20/18 at 23:00; Stop 11/20/18 at 23:01; Status DC Lactobacillus Rhamnosus (Culturelle) 1 cap BID PO Last administered on 11/21/18at 21:03; Start 11/19/18 at 21:00 Cefazolin Sodium/ Dextrose 50 ml @ 100 mls/hr 1X PREOP PRN IV SEE COMMENTS; Start 11/20/18 at 18:00; Stop 11/21/18 at 09:24; Status DC Vancomycin HCl (Vancomycin Random Level) 1 each 1X ONCE MC Last administered on 11/21/18at 06:22; Start 11/21/18 at 05:00; Stop 11/21/18 at 05:01; Status DC Vancomycin HCl 1 gm/Sodium Chloride 250 ml @ 250 mls/hr Q12H IV Last administered on 11/22/18at 05:59; Start 11/21/18 at 06:00 Ondansetron HCl (Zofran) 4 mg PRN Q6HRS PRN IV NAUSEA/VOMITING; Start 11/21/18 at 06:45; Stop 11/22/18 at 06:44; Status DC Fentanyl Citrate (Fentanyl 2ml Vial) 25 mcg PRN Q5MIN PRN IV MILD PAIN 1-3; Start 11/21/18 at 06:45; Stop 11/22/18 at 06:44; Status DC Fentanyl Citrate (Fentanyl 2ml Vial) 50 mcg PRN Q5MIN PRN IV MODERATE TO SEVERE PAIN; Start 11/21/18 at 06:45; Stop 11/22/18 at 06:44; Status DC Morphine Sulfate (Morphine Sulfate) 1 mg PRN Q10MIN PRN IV SEVERE PAIN 7-10; Start 11/21/18 at 06:45; Stop 11/22/18 at 06:44; Status DC Ringer's Solution 1,000 ml @ 30 mls/hr Q24H IV Last administered on 11/21/18at 09:04; Start 11/21/18 at 06:36; Stop 11/21/18 at 18:35; Status DC Hydromorphone HCl (Dilaudid) 0.5 mg PRN Q10MIN PRN IV SEV PAIN, Second choice; Start 11/21/18 at 06:45; Stop 11/22/18 at 06:44; Status DC Prochlorperazine Edisylate (Compazine) 5 mg PACU PRN PRN IV NAUSEA, MRX1; Start 11/21/18 at 06:45; Stop 11/22/18 at 06:44; Status DC Bupivacaine HCl (Sensorcaine Mpf 0.25%) 30 ml STK-MED ONCE .ROUTE ; Start 11/21/18 at 06:50; Stop 11/21/18 at 06:50; Status DC Propofol 20 ml @ As Directed STK-MED ONCE IV ; Start 11/21/18 at 07:23; Stop 11/21/18 at 07:23; Status DC Lidocaine HCl (Lidocaine Pf 2% Vial) 5 ml STK-MED ONCE .ROUTE ; Start 11/21/18 at 07:23; Stop 11/21/18 at 07:23; Status DC Ondansetron HCl (Zofran) 4 mg STK-MED ONCE .ROUTE ; Start 11/21/18 at 07:23; Stop 11/21/18 at 07:23; Status DC Dexamethasone Sodium Phosphate (Decadron) 4 mg STK-MED ONCE .ROUTE ; Start 11/21/18 at 07:23; Stop 11/21/18 at 07:23; Status DC Fentanyl Citrate (Fentanyl 2ml Vial) 100 mcg STK-MED ONCE .ROUTE ; Start 11/21/18 at 08:12; Stop 11/21/18 at 08:13; Status DC Sevoflurane (Ultane) 15 ml STK-MED ONCE IH ; Start 11/21/18 at 08:29; Stop 11/21/18 at 08:29; Status DC Acetaminophen/ Hydrocodone Bitart (Lortab 7.5/325) 1 tab PRN Q4HRS PRN PO MILD PAIN 1-3 Last administered on 11/21/18at 16:32; Start 11/21/18 at 09:15 Acetaminophen/ Hydrocodone Bitart (Lortab 7.5/325) 2 tab PRN Q4HRS PRN PO MODERATE PAIN, SEVERE PAIN; Start 11/21/18 at 09:15 Vitals/I & O Vital Sign - Last 24 Hours 11/21/18 11/21/18 11/21/18 11/21/18 08:00 08:34 08:49 09:05 Temp 96.8 96.9 96.8 96.9 Pulse 70 70 71 Resp 20 20 20 B/P (MAP) 85/55 100/70 110/71 Pulse Ox 100 100 98 O2 Delivery Room Air Simple Mask Room Air O2 Flow Rate 10 10 11/21/18 11/21/18 11/21/18 11/21/18 11:00 15:00 19:00 20:00 Temp 98.2 98.2 97.4 98.2 98.2 97.4 Pulse 71 73 78 Resp 18 18 18 B/P (MAP) 98/59 (72) 88/52 (64) 93/58 (70) Pulse Ox 97 96 97 O2 Delivery Room Air Room Air Room Air Room Air 11/21/18 11/22/18 23:00 03:00 Temp 97.5 97.7 97.5 97.7 Pulse 65 62 Resp 17 18 B/P (MAP) 98/63 (75) 91/60 (70) Pulse Ox 99 98 O2 Delivery Room Air Room Air Intake and Output 11/21/18 11/21/18 11/22/18 14:59 22:59 06:59 Intake Total 850 ml 600 ml 500 ml Output Total 1100 ml 400 ml 600 ml Balance -250 ml 200 ml -100 ml Images Right knee XR - 1. Moderate soft tissue swelling anterior to the proximal tibia. Nonspecific, but possibilities include hematoma, or inflammatory or infectious etiology, depending on clinical history. Distal patellar tendon is poorly defined, raising the question of distal patellar tendon injury. MRI could further evaluate as indicated. 2. No evidence of acute fracture or dislocation. GURVINDER RICKS MD Nov 22, 2018 07:55
[2018-11-22] MEDS: LACTOBACILLUS RHAMNOSUS GG 1 CAPSULE. PO SCH ×2 (09:09→20:42)
[2018-11-22 10:09] LABS: CALCIUM 8.6 mg/dL (8.5-10.1); GFR 79.8; POTASSIUM 3.2 mmol/L (3.5-5.1)
[2018-11-22 10:13] LABS: BASO # 0.1 x10^3/uL (0.0-0.2); BASO % 1 % (0-3); EOS # 0.1 x10^3/uL (0.0-0.7); EOS % 1 % (0-3); HEMATOCRIT 33.7 % (39.0-53.0); HEMOGLOBIN 11.6 g/dL (13.0-17.5); LYMPH # 1.8 x10^3/uL (1.0-4.8); LYMPH % 24 % (24-48); MEAN CORPUSCULAR HEMOGLOBIN 33 pg (25-35); MEAN CORPUSCULAR HGB CONC 35 g/dL (31-37); MEAN CORPUSCULAR VOLUME 95 fL (79-100); MONO # 0.4 x10^3/uL (0.0-1.1); MONO % 6 % (0-9); NEUT # 5.4 x10^3/uL (1.8-7.7); NEUT % 69 % (31-73); PLATELET COUNT 431 x10^3/uL (140-400); RED BLOOD COUNT 3.57 x10^6/uL (4.30-5.70); RED CELL DISTRIBUTION WIDTH 13.7 % (11.5-14.5); WHITE BLOOD COUNT 7.8 x10^3/uL (4.0-11.0)
[2018-11-22] MEDS: VANCOMYCIN PER PHARMACY MC SCH (10:22)
--- NOTE | 2018-11-22 10:37 | PDOC ---
Infectious Disease Note Subjective Subjective s/p I and D Feeling better Less knee pain No F/C/N/V/SOA Vital Sign Vital Signs Vital Signs Date Time Temp Pulse Resp B/P (MAP) Pulse Ox O2 Delivery O2 Flow Rate FiO2 11/22/18 08:00 Room Air 11/22/18 07:00 98.1 61 18 97/64 (75) 99 98.1 11/21/18 08:49 10 Physical Exam PHYSICAL EXAM GENERAL: Propped up in bed, alert, smiling HEENT: Pupils equally round, reactive. Normal conjunctivae. Oropharynx pink and moist. NECK: Supple. LUNGS: Clear to auscultation. CARDIAC: S1, S2. ABDOMEN: Soft, nontender with bowel sounds present. EXTREMITIES: No gross edema or cyanosis. Post-op dressing right knee in place. DP palpable SKIN: Warm to touch. No signs of rash. NEUROLOGIC: Alert and answering questions appropriately Labs Lab Laboratory Tests Test 11/22/18 09:17 White Blood Count 7.8 x10^3/uL (4.0-11.0) Red Blood Count 3.57 x10^6/uL (4.30-5.70) Hemoglobin 11.6 g/dL (13.0-17.5) Hematocrit 33.7 % (39.0-53.0) Mean Corpuscular Volume 95 fL (79-100) Mean Corpuscular Hemoglobin 33 pg (25-35) Mean Corpuscular Hemoglobin Concent 35 g/dL (31-37) Red Cell Distribution Width 13.7 % (11.5-14.5) Platelet Count 431 x10^3/uL (140-400) Neutrophils (%) (Auto) 69 % (31-73) Lymphocytes (%) (Auto) 24 % (24-48) Monocytes (%) (Auto) 6 % (0-9) Eosinophils (%) (Auto) 1 % (0-3) Basophils (%) (Auto) 1 % (0-3) Neutrophils # (Auto) 5.4 x10^3/uL (1.8-7.7) Lymphocytes # (Auto) 1.8 x10^3/uL (1.0-4.8) Monocytes # (Auto) 0.4 x10^3/uL (0.0-1.1) Eosinophils # (Auto) 0.1 x10^3/uL (0.0-0.7) Basophils # (Auto) 0.1 x10^3/uL (0.0-0.2) Sodium Level 141 mmol/L (136-145) Potassium Level 3.2 mmol/L (3.5-5.1) Chloride Level 105 mmol/L (98-107) Carbon Dioxide Level 26 mmol/L (21-32) Anion Gap 10 (6-14) Blood Urea Nitrogen 11 mg/dL (8-26) Creatinine 1.0 mg/dL (0.7-1.3) Estimated GFR (Cockcroft-Gault) 79.8 Glucose Level 159 mg/dL (70-99) Calcium Level 8.6 mg/dL (8.5-10.1) Objective Assessment Right knee cellulitis and bursa abscess s/p I and D, 11/21 Leukocytosis Tobaccoism Plan Plan of Care Vanc per pharmacy and Zosyn s/p pre-op steroids Monitor renal function closely Trough 33.7 Probiotics f/u intra-op cultures Local wound care as directed Patient seen and examined. Chart reviewed in detail. Case discussed with PERSONNEL ASSISTANT. Agree with above plan. KSENIA PHAM MD Nov 22, 2018 10:36
[2018-11-22 10:53] VITALS: BP 106/67
[2018-11-22] MEDS ORDERED: POTASSIUM CHLORIDE 20 MEQ TABLET.ER. PO ONE (12:00)
[2018-11-22] MEDS: HYDROcodone/APAP 7.5/325MG 1 TAB TABLET PO PRN ×2 (12:40→16:55)
--- NOTE | 2018-11-22 13:37 | PDOC ---
PROGRESS NOTES Subjective Subjective Still some knee pain as expected Objective Vital Signs Vital Signs Date Time Temp Pulse Resp B/P (MAP) Pulse Ox O2 Delivery O2 Flow Rate FiO2 11/22/18 13:26 97 Room Air 10.0 11/22/18 10:53 98.0 75 18 106/67 (80) 98.0 Physical Exam He looks well. The dressing was changed today by me and I removed about 12 inches of the packing and reapplied a dressing. The infection appears to be improved. There is decreased erythema, and no active drainage. Labs Laboratory Tests Test 11/20/18 21:30 11/21/18 04:30 11/22/18 09:17 Vancomycin Level Trough 33.7 mcg/mL (10.0-20.0) Vancomycin Last Dose Date 11/20/18 Vancomycin Last Dose Time 1530 White Blood Count 13.1 x10^3/uL (4.0-11.0) 7.8 x10^3/uL (4.0-11.0) Red Blood Count 3.59 x10^6/uL (4.30-5.70) 3.57 x10^6/uL (4.30-5.70) Hemoglobin 11.7 g/dL (13.0-17.5) 11.6 g/dL (13.0-17.5) Hematocrit 34.5 % (39.0-53.0) 33.7 % (39.0-53.0) Mean Corpuscular Volume 96 fL (79-100) 95 fL (79-100) Mean Corpuscular Hemoglobin 33 pg (25-35) 33 pg (25-35) Mean Corpuscular Hemoglobin Concent 34 g/dL (31-37) 35 g/dL (31-37) Red Cell Distribution Width 13.7 % (11.5-14.5) 13.7 % (11.5-14.5) Platelet Count 398 x10^3/uL (140-400) 431 x10^3/uL (140-400) Creatinine 0.9 mg/dL (0.7-1.3) 1.0 mg/dL (0.7-1.3) Estimated GFR (Cockcroft-Gault) 90.1 79.8 Random Vancomycin Level 9.8 mcg/mL Neutrophils (%) (Auto) 69 % (31-73) Lymphocytes (%) (Auto) 24 % (24-48) Monocytes (%) (Auto) 6 % (0-9) Eosinophils (%) (Auto) 1 % (0-3) Basophils (%) (Auto) 1 % (0-3) Neutrophils # (Auto) 5.4 x10^3/uL (1.8-7.7) Lymphocytes # (Auto) 1.8 x10^3/uL (1.0-4.8) Monocytes # (Auto) 0.4 x10^3/uL (0.0-1.1) Eosinophils # (Auto) 0.1 x10^3/uL (0.0-0.7) Basophils # (Auto) 0.1 x10^3/uL (0.0-0.2) Sodium Level 141 mmol/L (136-145) Potassium Level 3.2 mmol/L (3.5-5.1) Chloride Level 105 mmol/L (98-107) Carbon Dioxide Level 26 mmol/L (21-32) Anion Gap 10 (6-14) Blood Urea Nitrogen 11 mg/dL (8-26) Glucose Level 159 mg/dL (70-99) Calcium Level 8.6 mg/dL (8.5-10.1) Laboratory Tests Test 11/22/18 09:17 White Blood Count 7.8 x10^3/uL (4.0-11.0) Red Blood Count 3.57 x10^6/uL (4.30-5.70) Hemoglobin 11.6 g/dL (13.0-17.5) Hematocrit 33.7 % (39.0-53.0) Mean Corpuscular Volume 95 fL (79-100) Mean Corpuscular Hemoglobin 33 pg (25-35) Mean Corpuscular Hemoglobin Concent 35 g/dL (31-37) Red Cell Distribution Width 13.7 % (11.5-14.5) Platelet Count 431 x10^3/uL (140-400) Neutrophils (%) (Auto) 69 % (31-73) Lymphocytes (%) (Auto) 24 % (24-48) Monocytes (%) (Auto) 6 % (0-9) Eosinophils (%) (Auto) 1 % (0-3) Basophils (%) (Auto) 1 % (0-3) Neutrophils # (Auto) 5.4 x10^3/uL (1.8-7.7) Lymphocytes # (Auto) 1.8 x10^3/uL (1.0-4.8) Monocytes # (Auto) 0.4 x10^3/uL (0.0-1.1) Eosinophils # (Auto) 0.1 x10^3/uL (0.0-0.7) Basophils # (Auto) 0.1 x10^3/uL (0.0-0.2) Sodium Level 141 mmol/L (136-145) Potassium Level 3.2 mmol/L (3.5-5.1) Chloride Level 105 mmol/L (98-107) Carbon Dioxide Level 26 mmol/L (21-32) Anion Gap 10 (6-14) Blood Urea Nitrogen 11 mg/dL (8-26) Creatinine 1.0 mg/dL (0.7-1.3) Estimated GFR (Cockcroft-Gault) 79.8 Glucose Level 159 mg/dL (70-99) Calcium Level 8.6 mg/dL (8.5-10.1) Assessment Assessment POD#1 after incision and drainage of infrapatellar bursal abscess surgery was on 11/21/18. Plan Plan of Care Operative cultures were taken but are not yet reported. He will need several weeks of antibiotics, probably can use oral if the organism is sensitive. I would continue IV antibiotics for now until sensitivities are known. Continue the daily dressing changes with removal of about 12 inches of packing. ELLIOTT ROSE MD Nov 22, 2018 13:37
[2018-11-22 15:00] VITALS: BP 91/56
[2018-11-22 17:15] LABS: VANC TR 11.1 mcg/mL (10.0-20.0)
[2018-11-22 19:00] VITALS: BP 92/56
[2018-11-22 23:00] VITALS: BP 94/61
[2018-11-23] MEDS: PIPERACILLIN/TAZOBACTAM 3.375 GM in IV NORMAL SALINE 50ML 50 ML IV SCH ×4 (00:12→18:00)
[2018-11-23 03:00] VITALS: BP 105/67
[2018-11-23] MEDS: HYDROcodone/APAP 7.5/325MG 1 TAB TABLET PO PRN ×3 (05:58→16:58)
[2018-11-23] MEDS: VANCOMYCIN 1 GM in IV NORMAL SALINE 250ML 250 ML IV SCH ×2 (06:37→16:56)
[2018-11-23 07:00] VITALS: BP 104/65
[2018-11-23] MEDS: LACTOBACILLUS RHAMNOSUS GG 1 CAPSULE. PO SCH ×2 (08:36→20:39)
--- NOTE | 2018-11-23 08:39 | NUR ---
SW following pt for dc planning. Chart reviewed and pt is from home. Pt is self pay and HCFS will follow to verify eligibility. ID following pt and pt on IV abx. Will continue to follow pt pending dc needs.
[2018-11-23 08:55] LABS: BASO # 0.1 x10^3/uL (0.0-0.2); BASO % 1 % (0-3); EOS # 0.2 x10^3/uL (0.0-0.7); EOS % 2 % (0-3); HEMATOCRIT 34.3 % (39.0-53.0); HEMOGLOBIN 11.8 g/dL (13.0-17.5); LYMPH # 1.5 x10^3/uL (1.0-4.8); LYMPH % 18 % (24-48); MEAN CORPUSCULAR HEMOGLOBIN 33 pg (25-35); MEAN CORPUSCULAR HGB CONC 34 g/dL (31-37); MEAN CORPUSCULAR VOLUME 95 fL (79-100); MONO # 0.5 x10^3/uL (0.0-1.1); MONO % 7 % (0-9); NEUT % 72 % (31-73); PLATELET COUNT 453 x10^3/uL (140-400); RED BLOOD COUNT 3.59 x10^6/uL (4.30-5.70); RED CELL DISTRIBUTION WIDTH 13.8 % (11.5-14.5); WHITE BLOOD COUNT 8.3 x10^3/uL (4.0-11.0)
[2018-11-23 09:07] LABS: CREATININE 0.9 mg/dL (0.7-1.3); GFR 90.1; POTASSIUM 3.8 mmol/L (3.5-5.1)
[2018-11-23 10:00] VITALS: BP 97/63
--- NOTE | 2018-11-23 10:42 | PDOC ---
Infectious Disease Note Subjective Subjective s/p I and D Feeling better Less knee pain No F/C/N/V/SOA Vital Sign Vital Signs Vital Signs Date Time Temp Pulse Resp B/P (MAP) Pulse Ox O2 Delivery O2 Flow Rate FiO2 11/23/18 10:39 22 Room Air 11/23/18 07:00 97.6 62 104/65 (78) 97 97.6 11/23/18 03:00 10.0 Physical Exam PHYSICAL EXAM GENERAL: Propped up in bed, alert, smiling HEENT: Pupils equally round, reactive. Normal conjunctivae. Oropharynx pink and moist. NECK: Supple. LUNGS: Clear to auscultation. CARDIAC: S1, S2. ABDOMEN: Soft, nontender with bowel sounds present. EXTREMITIES: No gross edema or cyanosis. Post-op dressing right knee in place. ,, opened, purulent bloody drainage, cultured DP palpable SKIN: Warm to touch. No signs of rash. NEUROLOGIC: Alert and answering questions appropriately Labs Lab Laboratory Tests Test 11/22/18 16:45 11/23/18 07:00 Vancomycin Level Trough 11.1 mcg/mL (10.0-20.0) Vancomycin Last Dose Date 11/22/18 Vancomycin Last Dose Time 0800 White Blood Count 8.3 x10^3/uL (4.0-11.0) Red Blood Count 3.59 x10^6/uL (4.30-5.70) Hemoglobin 11.8 g/dL (13.0-17.5) Hematocrit 34.3 % (39.0-53.0) Mean Corpuscular Volume 95 fL (79-100) Mean Corpuscular Hemoglobin 33 pg (25-35) Mean Corpuscular Hemoglobin Concent 34 g/dL (31-37) Red Cell Distribution Width 13.8 % (11.5-14.5) Platelet Count 453 x10^3/uL (140-400) Neutrophils (%) (Auto) 72 % (31-73) Lymphocytes (%) (Auto) 18 % (24-48) Monocytes (%) (Auto) 7 % (0-9) Eosinophils (%) (Auto) 2 % (0-3) Basophils (%) (Auto) 1 % (0-3) Neutrophils # (Auto) 6.0 x10^3/uL (1.8-7.7) Lymphocytes # (Auto) 1.5 x10^3/uL (1.0-4.8) Monocytes # (Auto) 0.5 x10^3/uL (0.0-1.1) Eosinophils # (Auto) 0.2 x10^3/uL (0.0-0.7) Basophils # (Auto) 0.1 x10^3/uL (0.0-0.2) Sodium Level 141 mmol/L (136-145) Potassium Level 3.8 mmol/L (3.5-5.1) Chloride Level 107 mmol/L (98-107) Carbon Dioxide Level 27 mmol/L (21-32) Anion Gap 7 (6-14) Blood Urea Nitrogen 12 mg/dL (8-26) Creatinine 0.9 mg/dL (0.7-1.3) Estimated GFR (Cockcroft-Gault) 90.1 Glucose Level 83 mg/dL (70-99) Calcium Level 9.0 mg/dL (8.5-10.1) Objective Assessment Right knee cellulitis and bursa abscess s/p I and D, 11/21 Leukocytosis Tobaccoism Plan Plan of Care Vanc per pharmacy and Zosyn s/p pre-op steroids Monitor renal function closely Probiotics f/u intra-op cultures Local wound care as directed KSENIA PHAM MD Nov 23, 2018 10:41
--- NOTE | 2018-11-23 14:44 | PDOC ---
PROGRESS NOTES Chief Complaint Chief Complaint Sepsis Right knee infrapatellar bursa abscess s/p I&D 11/21/18 H/O marijuana use History of Present Illness History of Present Illness Mr Gonzalez is a 48yo M admitted with right knee pain. S/p I&D of infrapatellar bursa abscess on 11/21/18. Seen and examined bedside. He c/o some constipation. Pain is better controlled. ROM of his right knee is a bit better. No CP or SOB. D/w ID to continue empiric antibiotics, await intraoperative culture results. 11/21/18 Pt seen and examined lying in bed Had bursa of lower extremity drained operatively per ; wound CDI DW RN Chart reviewed 11/19/18 Pt seen and examined at bedside Pt sitting up in bed and with NAD JULIANNE RN Vitals Vitals Vital Signs Date Time Temp Pulse Resp B/P (MAP) Pulse Ox O2 Delivery O2 Flow Rate FiO2 11/23/18 11:56 16 Room Air 11/23/18 10:00 97.9 69 97/63 (74) 98 97.9 11/23/18 03:00 10.0 Physical Exam Physical Exam GENERAL: Propped up in bed, alert, smiling HEENT: Pupils equally round, reactive. Normal conjunctivae. Oropharynx pink and moist. NECK: Supple. LUNGS: Clear to auscultation. CARDIAC: S1, S2. ABDOMEN: Soft, nontender with bowel sounds present. EXTREMITIES: No gross edema or cyanosis. Post-op dressing right knee in place. ,, opened, purulent bloody drainage, cultured DP palpable SKIN: Warm to touch. No signs of rash. NEUROLOGIC: Alert and answering questions appropriately General: Alert, Oriented X3, Cooperative, No acute distress Heart: Regular rate Lungs: Clear Abdomen: Soft Extremities: Other (the right knee has swelling at the tibial tubercle and distal patellar tendon. The extensor mechanism is intact and he was able to flex the knee to 90� and then do active extension with some pain but no major difficulty. There is no disruption of the tendon clinically. There is an infected infrapatellar bursitis clinically with fullness, tenderness, redness, warmth, slight erythema but no drainage. There is no open wound. Is no knee effusion. There is no knee joint tenderness. The gross alignment of the right knee is normal.) Skin: No rashes, No significant lesion Labs LABS Laboratory Tests Test 11/22/18 16:45 11/23/18 07:00 Vancomycin Level Trough 11.1 mcg/mL (10.0-20.0) Vancomycin Last Dose Date 11/22/18 Vancomycin Last Dose Time 0800 White Blood Count 8.3 x10^3/uL (4.0-11.0) Red Blood Count 3.59 x10^6/uL (4.30-5.70) Hemoglobin 11.8 g/dL (13.0-17.5) Hematocrit 34.3 % (39.0-53.0) Mean Corpuscular Volume 95 fL (79-100) Mean Corpuscular Hemoglobin 33 pg (25-35) Mean Corpuscular Hemoglobin Concent 34 g/dL (31-37) Red Cell Distribution Width 13.8 % (11.5-14.5) Platelet Count 453 x10^3/uL (140-400) Neutrophils (%) (Auto) 72 % (31-73) Lymphocytes (%) (Auto) 18 % (24-48) Monocytes (%) (Auto) 7 % (0-9) Eosinophils (%) (Auto) 2 % (0-3) Basophils (%) (Auto) 1 % (0-3) Neutrophils # (Auto) 6.0 x10^3/uL (1.8-7.7) Lymphocytes # (Auto) 1.5 x10^3/uL (1.0-4.8) Monocytes # (Auto) 0.5 x10^3/uL (0.0-1.1) Eosinophils # (Auto) 0.2 x10^3/uL (0.0-0.7) Basophils # (Auto) 0.1 x10^3/uL (0.0-0.2) Sodium Level 141 mmol/L (136-145) Potassium Level 3.8 mmol/L (3.5-5.1) Chloride Level 107 mmol/L (98-107) Carbon Dioxide Level 27 mmol/L (21-32) Anion Gap 7 (6-14) Blood Urea Nitrogen 12 mg/dL (8-26) Creatinine 0.9 mg/dL (0.7-1.3) Estimated GFR (Cockcroft-Gault) 90.1 Glucose Level 83 mg/dL (70-99) Calcium Level 9.0 mg/dL (8.5-10.1) Assessment and Plan Assessmemt and Plan Problems Medical Problems: (1) Cellulitis Status: Acute Comment Review of Relevant I have reviewed the following items unique (where applicable) has been applied. Labs Laboratory Tests Test 11/22/18 09:17 11/22/18 16:45 11/23/18 07:00 White Blood Count 7.8 x10^3/uL (4.0-11.0) 8.3 x10^3/uL (4.0-11.0) Red Blood Count 3.57 x10^6/uL (4.30-5.70) 3.59 x10^6/uL (4.30-5.70) Hemoglobin 11.6 g/dL (13.0-17.5) 11.8 g/dL (13.0-17.5) Hematocrit 33.7 % (39.0-53.0) 34.3 % (39.0-53.0) Mean Corpuscular Volume 95 fL (79-100) 95 fL (79-100) Mean Corpuscular Hemoglobin 33 pg (25-35) 33 pg (25-35) Mean Corpuscular Hemoglobin Concent 35 g/dL (31-37) 34 g/dL (31-37) Red Cell Distribution Width 13.7 % (11.5-14.5) 13.8 % (11.5-14.5) Platelet Count 431 x10^3/uL (140-400) 453 x10^3/uL (140-400) Neutrophils (%) (Auto) 69 % (31-73) 72 % (31-73) Lymphocytes (%) (Auto) 24 % (24-48) 18 % (24-48) Monocytes (%) (Auto) 6 % (0-9) 7 % (0-9) Eosinophils (%) (Auto) 1 % (0-3) 2 % (0-3) Basophils (%) (Auto) 1 % (0-3) 1 % (0-3) Neutrophils # (Auto) 5.4 x10^3/uL (1.8-7.7) 6.0 x10^3/uL (1.8-7.7) Lymphocytes # (Auto) 1.8 x10^3/uL (1.0-4.8) 1.5 x10^3/uL (1.0-4.8) Monocytes # (Auto) 0.4 x10^3/uL (0.0-1.1) 0.5 x10^3/uL (0.0-1.1) Eosinophils # (Auto) 0.1 x10^3/uL (0.0-0.7) 0.2 x10^3/uL (0.0-0.7) Basophils # (Auto) 0.1 x10^3/uL (0.0-0.2) 0.1 x10^3/uL (0.0-0.2) Sodium Level 141 mmol/L (136-145) 141 mmol/L (136-145) Potassium Level 3.2 mmol/L (3.5-5.1) 3.8 mmol/L (3.5-5.1) Chloride Level 105 mmol/L (98-107) 107 mmol/L (98-107) Carbon Dioxide Level 26 mmol/L (21-32) 27 mmol/L (21-32) Anion Gap 10 (6-14) 7 (6-14) Blood Urea Nitrogen 11 mg/dL (8-26) 12 mg/dL (8-26) Creatinine 1.0 mg/dL (0.7-1.3) 0.9 mg/dL (0.7-1.3) Estimated GFR (Cockcroft-Gault) 79.8 90.1 Glucose Level 159 mg/dL (70-99) 83 mg/dL (70-99) Calcium Level 8.6 mg/dL (8.5-10.1) 9.0 mg/dL (8.5-10.1) Vancomycin Level Trough 11.1 mcg/mL (10.0-20.0) Vancomycin Last Dose Date 11/22/18 Vancomycin Last Dose Time 0800 Laboratory Tests Test 11/22/18 16:45 11/23/18 07:00 Vancomycin Level Trough 11.1 mcg/mL (10.0-20.0) Vancomycin Last Dose Date 11/22/18 Vancomycin Last Dose Time 0800 White Blood Count 8.3 x10^3/uL (4.0-11.0) Red Blood Count 3.59 x10^6/uL (4.30-5.70) Hemoglobin 11.8 g/dL (13.0-17.5) Hematocrit 34.3 % (39.0-53.0) Mean Corpuscular Volume 95 fL (79-100) Mean Corpuscular Hemoglobin 33 pg (25-35) Mean Corpuscular Hemoglobin Concent 34 g/dL (31-37) Red Cell Distribution Width 13.8 % (11.5-14.5) Platelet Count 453 x10^3/uL (140-400) Neutrophils (%) (Auto) 72 % (31-73) Lymphocytes (%) (Auto) 18 % (24-48) Monocytes (%) (Auto) 7 % (0-9) Eosinophils (%) (Auto) 2 % (0-3) Basophils (%) (Auto) 1 % (0-3) Neutrophils # (Auto) 6.0 x10^3/uL (1.8-7.7) Lymphocytes # (Auto) 1.5 x10^3/uL (1.0-4.8) Monocytes # (Auto) 0.5 x10^3/uL (0.0-1.1) Eosinophils # (Auto) 0.2 x10^3/uL (0.0-0.7) Basophils # (Auto) 0.1 x10^3/uL (0.0-0.2) Sodium Level 141 mmol/L (136-145) Potassium Level 3.8 mmol/L (3.5-5.1) Chloride Level 107 mmol/L (98-107) Carbon Dioxide Level 27 mmol/L (21-32) Anion Gap 7 (6-14) Blood Urea Nitrogen 12 mg/dL (8-26) Creatinine 0.9 mg/dL (0.7-1.3) Estimated GFR (Cockcroft-Gault) 90.1 Glucose Level 83 mg/dL (70-99) Calcium Level 9.0 mg/dL (8.5-10.1) Microbiology 11/21/18 Anaerobic/Aerobic Culture, Resulted Pending 11/21/18 Anaerobic Culture Result 1 (RADHA), Resulted Pending 11/21/18 Aerobic Culture, Resulted Pending 11/21/18 Aerobic Culture Result 1 (RADHA), Resulted Pending 11/21/18 Gram Stain - Final, Resulted 11/21/18 Gram Stain Result 1 (RADHA) - Final, Resulted 11/21/18 Gram Stain Result 2 (RADHA) - Final, Resulted Medications Current Medications Morphine Sulfate (Morphine Sulfate) 2 mg 1X ONCE IV Last administered on 11/19/18at 11:40; Start 11/19/18 at 11:00; Stop 11/19/18 at 11:02; Status DC Sodium Chloride 1,000 ml @ 1,000 mls/hr 1X ONCE IV Last administered on 11/19/18at 11:40; Start 11/19/18 at 11:00; Stop 11/19/18 at 11:59; Status DC Clindamycin Phosphate 50 ml @ 100 mls/hr 1X ONCE IV Last administered on 11/19/18at 11:40; Start 11/19/18 at 11:00; Stop 11/19/18 at 11:29; Status DC Ondansetron HCl (Zofran) 4 mg PRN Q8HRS PRN IV NAUSEA/VOMITING; Start 11/19/18 at 12:45; Stop 11/20/18 at 12:44; Status DC Morphine Sulfate (Morphine Sulfate) 2 mg PRN Q2HR PRN IV PAIN Last administered on 11/19/18at 21:07; Start 11/19/18 at 12:45; Stop 11/20/18 at 12:44; Status DC Vancomycin HCl (Vanco Per Pharmacy) 1 each PRN DAILY MC Last administered on 11/22/18at 10:22; Start 11/19/18 at 13:45 Piperacillin Sod/ Tazobactam Sod (Zosyn Per Pharmacy) 1 each PRN DAILY PRN MC SEE COMMENTS; Start 11/19/18 at 13:45 Vancomycin HCl 1.75 gm/Sodium Chloride 500 ml @ 250 mls/hr 1X ONCE IV Last administered on 11/19/18at 15:26; Start 11/19/18 at 14:00; Stop 11/19/18 at 15:59; Status DC Piperacillin Sod/ Tazobactam Sod 3.375 gm/Sodium Chloride 50 ml @ 100 mls/hr Q6HRS IV Last administered on 11/23/18at 12:21; Start 11/19/18 at 14:00 Vancomycin HCl 1 gm/Sodium Chloride 250 ml @ 250 mls/hr Q8H IV Last administered on 11/20/18at 15:46; Start 11/19/18 at 23:30; Stop 11/20/18 at 22:56; Status DC Vancomycin HCl (Vancomycin Trough Level) 1 each 1X ONCE MC Last administered on 11/21/18at 00:32; Start 11/20/18 at 23:00; Stop 11/20/18 at 23:01; Status DC Lactobacillus Rhamnosus (Culturelle) 1 cap BID PO Last administered on 11/23/18at 08:36; Start 11/19/18 at 21:00 Cefazolin Sodium/ Dextrose 50 ml @ 100 mls/hr 1X PREOP PRN IV SEE COMMENTS; Start 11/20/18 at 18:00; Stop 11/21/18 at 09:24; Status DC Vancomycin HCl (Vancomycin Random Level) 1 each 1X ONCE MC Last administered on 11/21/18at 06:22; Start 11/21/18 at 05:00; Stop 11/21/18 at 05:01; Status DC Vancomycin HCl 1 gm/Sodium Chloride 250 ml @ 250 mls/hr Q12H IV Last administered on 11/23/18at 06:37; Start 11/21/18 at 06:00 Ondansetron HCl (Zofran) 4 mg PRN Q6HRS PRN IV NAUSEA/VOMITING; Start 11/21/18 at 06:45; Stop 11/22/18 at 06:44; Status DC Fentanyl Citrate (Fentanyl 2ml Vial) 25 mcg PRN Q5MIN PRN IV MILD PAIN 1-3; Start 11/21/18 at 06:45; Stop 11/22/18 at 06:44; Status DC Fentanyl Citrate (Fentanyl 2ml Vial) 50 mcg PRN Q5MIN PRN IV MODERATE TO SEVERE PAIN; Start 11/21/18 at 06:45; Stop 11/22/18 at 06:44; Status DC Morphine Sulfate (Morphine Sulfate) 1 mg PRN Q10MIN PRN IV SEVERE PAIN 7-10; Start 11/21/18 at 06:45; Stop 11/22/18 at 06:44; Status DC Ringer's Solution 1,000 ml @ 30 mls/hr Q24H IV Last administered on 11/21/18at 09:04; Start 11/21/18 at 06:36; Stop 11/21/18 at 18:35; Status DC Hydromorphone HCl (Dilaudid) 0.5 mg PRN Q10MIN PRN IV SEV PAIN, Second choice; Start 11/21/18 at 06:45; Stop 11/22/18 at 06:44; Status DC Prochlorperazine Edisylate (Compazine) 5 mg PACU PRN PRN IV NAUSEA, MRX1; Start 11/21/18 at 06:45; Stop 11/22/18 at 06:44; Status DC Bupivacaine HCl (Sensorcaine Mpf 0.25%) 30 ml STK-MED ONCE .ROUTE ; Start 11/21/18 at 06:50; Stop 11/21/18 at 06:50; Status DC Propofol 20 ml @ As Directed STK-MED ONCE IV ; Start 11/21/18 at 07:23; Stop 11/21/18 at 07:23; Status DC Lidocaine HCl (Lidocaine Pf 2% Vial) 5 ml STK-MED ONCE .ROUTE ; Start 11/21/18 at 07:23; Stop 11/21/18 at 07:23; Status DC Ondansetron HCl (Zofran) 4 mg STK-MED ONCE .ROUTE ; Start 11/21/18 at 07:23; Stop 11/21/18 at 07:23; Status DC Dexamethasone Sodium Phosphate (Decadron) 4 mg STK-MED ONCE .ROUTE ; Start 11/21/18 at 07:23; Stop 11/21/18 at 07:23; Status DC Fentanyl Citrate (Fentanyl 2ml Vial) 100 mcg STK-MED ONCE .ROUTE ; Start 11/21/18 at 08:12; Stop 11/21/18 at 08:13; Status DC Sevoflurane (Ultane) 15 ml STK-MED ONCE IH ; Start 11/21/18 at 08:29; Stop 11/21/18 at 08:29; Status DC Acetaminophen/ Hydrocodone Bitart (Lortab 7.5/325) 1 tab PRN Q4HRS PRN PO MILD PAIN 1-3 Last administered on 11/21/18at 16:32; Start 11/21/18 at 09:15 Acetaminophen/ Hydrocodone Bitart (Lortab 7.5/325) 2 tab PRN Q4HRS PRN PO MODERATE PAIN, SEVERE PAIN Last administered on 11/23/18at 10:39; Start 11/21/18 at 09:15 Potassium Chloride (Klor-Con) 40 meq 1X ONCE PO Last administered on 11/22/18at 12:41; Start 11/22/18 at 12:00; Stop 11/22/18 at 12:01; Status DC Vitals/I & O Vital Sign - Last 24 Hours 11/22/18 11/22/18 11/22/18 11/22/18 15:00 16:55 18:02 19:00 Temp 98.0 97.7 98.0 97.7 Pulse 68 60 Resp 18 18 B/P (MAP) 91/56 (68) 92/56 (68) Pulse Ox 97 97 97 99 O2 Delivery Room Air Room Air Room Air Room Air O2 Flow Rate 10.0 10.0 10.0 11/22/18 11/22/18 11/23/18 11/23/18 20:00 23:00 03:00 05:58 Temp 97.9 98.6 97.9 98.6 Pulse 65 72 Resp 18 18 B/P (MAP) 94/61 (72) 105/67 (80) Pulse Ox 99 100 O2 Delivery Room Air Room Air Room Air Room Air O2 Flow Rate 10.0 10.0 11/23/18 11/23/18 11/23/18 11/23/18 07:00 10:00 10:39 11:56 Temp 97.6 97.9 97.6 97.9 Pulse 62 69 Resp 17 17 22 16 B/P (MAP) 104/65 (78) 97/63 (74) Pulse Ox 97 98 O2 Delivery Room Air Room Air Room Air Room Air Intake and Output 11/22/18 11/22/18 11/23/18 14:59 22:59 06:59 Intake Total 600 ml 550 ml 100 ml Output Total 500 ml 2000 ml Balance 100 ml 550 ml -1900 ml GURVINDER RICKS MD Nov 23, 2018 14:44
[2018-11-23 15:00] VITALS: BP 94/62
[2018-11-23 19:00] VITALS: BP 95/62
[2018-11-23 23:00] VITALS: BP 101/64
[2018-11-24] MEDS: PIPERACILLIN/TAZOBACTAM 3.375 GM in IV NORMAL SALINE 50ML 50 ML IV SCH ×3 (00:07→12:00)
[2018-11-24] MEDS: HYDROcodone/APAP 7.5/325MG 1 TAB TABLET PO PRN ×3 (00:08→17:57)
[2018-11-24 03:00] VITALS: BP 91/48
[2018-11-24 04:47] LABS: BASO # 0.1 x10^3/uL (0.0-0.2); BASO % 1 % (0-3); EOS # 0.2 x10^3/uL (0.0-0.7); EOS % 2 % (0-3); HEMATOCRIT 34.9 % (39.0-53.0); HEMOGLOBIN 11.9 g/dL (13.0-17.5); LYMPH # 1.6 x10^3/uL (1.0-4.8); LYMPH % 17 % (24-48); MEAN CORPUSCULAR HEMOGLOBIN 32 pg (25-35); MEAN CORPUSCULAR HGB CONC 34 g/dL (31-37); MEAN CORPUSCULAR VOLUME 94 fL (79-100); MONO # 0.7 x10^3/uL (0.0-1.1); MONO % 7 % (0-9); NEUT # 7.1 x10^3/uL (1.8-7.7); NEUT % 73 % (31-73); PLATELET COUNT 492 x10^3/uL (140-400); WHITE BLOOD COUNT 9.6 x10^3/uL (4.0-11.0)
[2018-11-24 05:37] LABS: CALCIUM 8.9 mg/dL (8.5-10.1); GFR 79.8; POTASSIUM 3.9 mmol/L (3.5-5.1)
[2018-11-24] MEDS: VANCOMYCIN 1 GM in IV NORMAL SALINE 250ML 250 ML IV SCH (06:47)
[2018-11-24 07:00] VITALS: BP 108/73
--- NOTE | 2018-11-24 09:21 | PDOC ---
PROGRESS NOTES Chief Complaint Chief Complaint Sepsis Right knee infrapatellar bursa abscess s/p I&D 11/21/18 H/O marijuana use History of Present Illness History of Present Illness Mr Gonzalez is a 48yo M admitted with right knee pain. S/p I&D of infrapatellar bursa abscess on 11/21/18. Seen and examined bedside. He c/o some constipation. Pain is better controlled. ROM of his right knee is a bit better. No CP or SOB. D/w ID to continue empiric antibiotics, intraoperative culture results show rare staph. Repeat culture was negative. Patient really wishes to leave, so we will d/c on zyvox, and he will have ortho f/u. 11/21/18 Pt seen and examined lying in bed Had bursa of lower extremity drained operatively per ; wound CDI DW RN Chart reviewed 11/19/18 Pt seen and examined at bedside Pt sitting up in bed and with NAD JULIANNE RN Vitals Vitals Vital Signs Date Time Temp Pulse Resp B/P (MAP) Pulse Ox O2 Delivery O2 Flow Rate FiO2 11/24/18 07:00 98.1 69 17 108/73 (85) 99 Room Air 98.1 11/24/18 00:09 10.0 Physical Exam Physical Exam GENERAL: Propped up in bed, alert, smiling HEENT: Pupils equally round, reactive. Normal conjunctivae. Oropharynx pink and moist. NECK: Supple. LUNGS: Clear to auscultation. CARDIAC: S1, S2. ABDOMEN: Soft, nontender with bowel sounds present. EXTREMITIES: No gross edema or cyanosis. Post-op dressing right knee in place. ,, opened, purulent bloody drainage, cultured DP palpable SKIN: Warm to touch. No signs of rash. NEUROLOGIC: Alert and answering questions appropriately General: Alert, Oriented X3, Cooperative, No acute distress Heart: Regular rate Lungs: Clear Abdomen: Soft Extremities: Other (the right knee has swelling at the tibial tubercle and distal patellar tendon. The extensor mechanism is intact and he was able to flex the knee to 90� and then do active extension with some pain but no major difficulty. There is no disruption of the tendon clinically. There is an infected infrapatellar bursitis clinically with fullness, tenderness, redness, warmth, slight erythema but no drainage. There is no open wound. Is no knee effusion. There is no knee joint tenderness. The gross alignment of the right knee is normal.) Skin: No rashes, No significant lesion Labs LABS Laboratory Tests Test 11/24/18 04:15 White Blood Count 9.6 x10^3/uL (4.0-11.0) Red Blood Count 3.70 x10^6/uL (4.30-5.70) Hemoglobin 11.9 g/dL (13.0-17.5) Hematocrit 34.9 % (39.0-53.0) Mean Corpuscular Volume 94 fL (79-100) Mean Corpuscular Hemoglobin 32 pg (25-35) Mean Corpuscular Hemoglobin Concent 34 g/dL (31-37) Red Cell Distribution Width 14.0 % (11.5-14.5) Platelet Count 492 x10^3/uL (140-400) Neutrophils (%) (Auto) 73 % (31-73) Lymphocytes (%) (Auto) 17 % (24-48) Monocytes (%) (Auto) 7 % (0-9) Eosinophils (%) (Auto) 2 % (0-3) Basophils (%) (Auto) 1 % (0-3) Neutrophils # (Auto) 7.1 x10^3/uL (1.8-7.7) Lymphocytes # (Auto) 1.6 x10^3/uL (1.0-4.8) Monocytes # (Auto) 0.7 x10^3/uL (0.0-1.1) Eosinophils # (Auto) 0.2 x10^3/uL (0.0-0.7) Basophils # (Auto) 0.1 x10^3/uL (0.0-0.2) Sodium Level 139 mmol/L (136-145) Potassium Level 3.9 mmol/L (3.5-5.1) Chloride Level 104 mmol/L (98-107) Carbon Dioxide Level 27 mmol/L (21-32) Anion Gap 8 (6-14) Blood Urea Nitrogen 12 mg/dL (8-26) Creatinine 1.0 mg/dL (0.7-1.3) Estimated GFR (Cockcroft-Gault) 79.8 Glucose Level 85 mg/dL (70-99) Calcium Level 8.9 mg/dL (8.5-10.1) Assessment and Plan Assessmemt and Plan Problems Medical Problems: (1) Cellulitis Status: Acute Comment Review of Relevant I have reviewed the following items unique (where applicable) has been applied. Labs Laboratory Tests Test 11/22/18 16:45 11/23/18 07:00 11/24/18 04:15 Vancomycin Level Trough 11.1 mcg/mL (10.0-20.0) Vancomycin Last Dose Date 11/22/18 Vancomycin Last Dose Time 0800 White Blood Count 8.3 x10^3/uL (4.0-11.0) 9.6 x10^3/uL (4.0-11.0) Red Blood Count 3.59 x10^6/uL (4.30-5.70) 3.70 x10^6/uL (4.30-5.70) Hemoglobin 11.8 g/dL (13.0-17.5) 11.9 g/dL (13.0-17.5) Hematocrit 34.3 % (39.0-53.0) 34.9 % (39.0-53.0) Mean Corpuscular Volume 95 fL (79-100) 94 fL (79-100) Mean Corpuscular Hemoglobin 33 pg (25-35) 32 pg (25-35) Mean Corpuscular Hemoglobin Concent 34 g/dL (31-37) 34 g/dL (31-37) Red Cell Distribution Width 13.8 % (11.5-14.5) 14.0 % (11.5-14.5) Platelet Count 453 x10^3/uL (140-400) 492 x10^3/uL (140-400) Neutrophils (%) (Auto) 72 % (31-73) 73 % (31-73) Lymphocytes (%) (Auto) 18 % (24-48) 17 % (24-48) Monocytes (%) (Auto) 7 % (0-9) 7 % (0-9) Eosinophils (%) (Auto) 2 % (0-3) 2 % (0-3) Basophils (%) (Auto) 1 % (0-3) 1 % (0-3) Neutrophils # (Auto) 6.0 x10^3/uL (1.8-7.7) 7.1 x10^3/uL (1.8-7.7) Lymphocytes # (Auto) 1.5 x10^3/uL (1.0-4.8) 1.6 x10^3/uL (1.0-4.8) Monocytes # (Auto) 0.5 x10^3/uL (0.0-1.1) 0.7 x10^3/uL (0.0-1.1) Eosinophils # (Auto) 0.2 x10^3/uL (0.0-0.7) 0.2 x10^3/uL (0.0-0.7) Basophils # (Auto) 0.1 x10^3/uL (0.0-0.2) 0.1 x10^3/uL (0.0-0.2) Sodium Level 141 mmol/L (136-145) 139 mmol/L (136-145) Potassium Level 3.8 mmol/L (3.5-5.1) 3.9 mmol/L (3.5-5.1) Chloride Level 107 mmol/L (98-107) 104 mmol/L (98-107) Carbon Dioxide Level 27 mmol/L (21-32) 27 mmol/L (21-32) Anion Gap 7 (6-14) 8 (6-14) Blood Urea Nitrogen 12 mg/dL (8-26) 12 mg/dL (8-26) Creatinine 0.9 mg/dL (0.7-1.3) 1.0 mg/dL (0.7-1.3) Estimated GFR (Cockcroft-Gault) 90.1 79.8 Glucose Level 83 mg/dL (70-99) 85 mg/dL (70-99) Calcium Level 9.0 mg/dL (8.5-10.1) 8.9 mg/dL (8.5-10.1) Laboratory Tests Test 11/24/18 04:15 White Blood Count 9.6 x10^3/uL (4.0-11.0) Red Blood Count 3.70 x10^6/uL (4.30-5.70) Hemoglobin 11.9 g/dL (13.0-17.5) Hematocrit 34.9 % (39.0-53.0) Mean Corpuscular Volume 94 fL (79-100) Mean Corpuscular Hemoglobin 32 pg (25-35) Mean Corpuscular Hemoglobin Concent 34 g/dL (31-37) Red Cell Distribution Width 14.0 % (11.5-14.5) Platelet Count 492 x10^3/uL (140-400) Neutrophils (%) (Auto) 73 % (31-73) Lymphocytes (%) (Auto) 17 % (24-48) Monocytes (%) (Auto) 7 % (0-9) Eosinophils (%) (Auto) 2 % (0-3) Basophils (%) (Auto) 1 % (0-3) Neutrophils # (Auto) 7.1 x10^3/uL (1.8-7.7) Lymphocytes # (Auto) 1.6 x10^3/uL (1.0-4.8) Monocytes # (Auto) 0.7 x10^3/uL (0.0-1.1) Eosinophils # (Auto) 0.2 x10^3/uL (0.0-0.7) Basophils # (Auto) 0.1 x10^3/uL (0.0-0.2) Sodium Level 139 mmol/L (136-145) Potassium Level 3.9 mmol/L (3.5-5.1) Chloride Level 104 mmol/L (98-107) Carbon Dioxide Level 27 mmol/L (21-32) Anion Gap 8 (6-14) Blood Urea Nitrogen 12 mg/dL (8-26) Creatinine 1.0 mg/dL (0.7-1.3) Estimated GFR (Cockcroft-Gault) 79.8 Glucose Level 85 mg/dL (70-99) Calcium Level 8.9 mg/dL (8.5-10.1) Microbiology 11/21/18 Anaerobic/Aerobic Culture, Resulted Pending 11/21/18 Anaerobic Culture Result 1 (RADHA), Resulted Pending 11/21/18 Aerobic Culture, Resulted Pending 11/21/18 Aerobic Culture Result 1 (RADHA), Resulted Pending 11/21/18 Gram Stain - Final, Resulted 11/21/18 Gram Stain Result 1 (RADHA) - Final, Resulted 11/21/18 Gram Stain Result 2 (RADHA) - Final, Resulted Medications Current Medications Morphine Sulfate (Morphine Sulfate) 2 mg 1X ONCE IV Last administered on 11/19/18at 11:40; Start 11/19/18 at 11:00; Stop 11/19/18 at 11:02; Status DC Sodium Chloride 1,000 ml @ 1,000 mls/hr 1X ONCE IV Last administered on 11/19/18at 11:40; Start 11/19/18 at 11:00; Stop 11/19/18 at 11:59; Status DC Clindamycin Phosphate 50 ml @ 100 mls/hr 1X ONCE IV Last administered on 11/19/18at 11:40; Start 11/19/18 at 11:00; Stop 11/19/18 at 11:29; Status DC Ondansetron HCl (Zofran) 4 mg PRN Q8HRS PRN IV NAUSEA/VOMITING; Start 11/19/18 at 12:45; Stop 11/20/18 at 12:44; Status DC Morphine Sulfate (Morphine Sulfate) 2 mg PRN Q2HR PRN IV PAIN Last administered on 11/19/18at 21:07; Start 11/19/18 at 12:45; Stop 11/20/18 at 12:44; Status DC Vancomycin HCl (Vanco Per Pharmacy) 1 each PRN DAILY MC Last administered on 11/22/18at 10:22; Start 11/19/18 at 13:45 Piperacillin Sod/ Tazobactam Sod (Zosyn Per Pharmacy) 1 each PRN DAILY PRN MC SEE COMMENTS; Start 11/19/18 at 13:45 Vancomycin HCl 1.75 gm/Sodium Chloride 500 ml @ 250 mls/hr 1X ONCE IV Last administered on 11/19/18at 15:26; Start 11/19/18 at 14:00; Stop 11/19/18 at 1 5:59; Status DC Piperacillin Sod/ Tazobactam Sod 3.375 gm/Sodium Chloride 50 ml @ 100 mls/hr Q6HRS IV Last administered on 11/24/18at 06:11; Start 11/19/18 at 14:00 Vancomycin HCl 1 gm/Sodium Chloride 250 ml @ 250 mls/hr Q8H IV Last administered on 11/20/18at 15:46; Start 11/19/18 at 23:30; Stop 11/20/18 at 22:56; Status DC Vancomycin HCl (Vancomycin Trough Level) 1 each 1X ONCE MC Last administered on 11/21/18at 00:32; Start 11/20/18 at 23:00; Stop 11/20/18 at 23:01; Status DC Lactobacillus Rhamnosus (Culturelle) 1 cap BID PO Last administered on 11/23/18at 20:39; Start 11/19/18 at 21:00 Cefazolin Sodium/ Dextrose 50 ml @ 100 mls/hr 1X PREOP PRN IV SEE COMMENTS; Start 11/20/18 at 18:00; Stop 11/21/18 at 09:24; Status DC Vancomycin HCl (Vancomycin Random Level) 1 each 1X ONCE MC Last administered on 11/21/18at 06:22; Start 11/21/18 at 05:00; Stop 11/21/18 at 05:01; Status DC Vancomycin HCl 1 gm/Sodium Chloride 250 ml @ 250 mls/hr Q12H IV Last administered on 11/24/18at 06:47; Start 11/21/18 at 06:00 Ondansetron HCl (Zofran) 4 mg PRN Q6HRS PRN IV NAUSEA/VOMITING; Start 11/21/18 at 06:45; Stop 11/22/18 at 06:44; Status DC Fentanyl Citrate (Fentanyl 2ml Vial) 25 mcg PRN Q5MIN PRN IV MILD PAIN 1-3; Start 11/21/18 at 06:45; Stop 11/22/18 at 06:44; Status DC Fentanyl Citrate (Fentanyl 2ml Vial) 50 mcg PRN Q5MIN PRN IV MODERATE TO SEVERE PAIN; Start 11/21/18 at 06:45; Stop 11/22/18 at 06:44; Status DC Morphine Sulfate (Morphine Sulfate) 1 mg PRN Q10MIN PRN IV SEVERE PAIN 7-10; Start 11/21/18 at 06:45; Stop 11/22/18 at 06:44; Status DC Ringer's Solution 1,000 ml @ 30 mls/hr Q24H IV Last administered on 11/21/18at 09:04; Start 11/21/18 at 06:36; Stop 11/21/18 at 18:35; Status DC Hydromorphone HCl (Dilaudid) 0.5 mg PRN Q10MIN PRN IV SEV PAIN, Second choice; Start 11/21/18 at 06:45; Stop 11/22/18 at 06:44; Status DC Prochlorperazine Edisylate (Compazine) 5 mg PACU PRN PRN IV NAUSEA, MRX1; Start 11/21/18 at 06:45; Stop 11/22/18 at 06:44; Status DC Bupivacaine HCl (Sensorcaine Mpf 0.25%) 30 ml STK-MED ONCE .ROUTE ; Start at 06:50; Stop 11/21/18 at 06:50; Status DC Propofol 20 ml @ As Directed STK-MED ONCE IV ; Start 11/21/18 at 07:23; Stop at 07:23; Status DC Lidocaine HCl (Lidocaine Pf 2% Vial) 5 ml STK-MED ONCE .ROUTE ; Start 11/21/18 at 07:23; Stop 11/21/18 at 07:23; Status DC Ondansetron HCl (Zofran) 4 mg STK-MED ONCE .ROUTE ; Start 11/21/18 at 07:23; Stop 11/21/18 at 07:23; Status DC Dexamethasone Sodium Phosphate (Decadron) 4 mg STK-MED ONCE .ROUTE ; Start 11/21/18 at 07:23; Stop 11/21/18 at 07:23; Status DC Fentanyl Citrate (Fentanyl 2ml Vial) 100 mcg STK-MED ONCE .ROUTE ; Start 11/21/18 at 08:12; Stop 11/21/18 at 08:13; Status DC Sevoflurane (Ultane) 15 ml STK-MED ONCE IH ; Start 11/21/18 at 08:29; Stop 11/21/18 at 08:29; Status DC Acetaminophen/ Hydrocodone Bitart (Lortab 7.5/325) 1 tab PRN Q4HRS PRN PO MILD PAIN 1-3 Last administered on 11/21/18at 16:32; Start 11/21/18 at 09:15 Acetaminophen/ Hydrocodone Bitart (Lortab 7.5/325) 2 tab PRN Q4HRS PRN PO MODERATE PAIN, SEVERE PAIN Last administered on 11/24/18at 00:09; Start 11/21/18 at 09:15 Potassium Chloride (Klor-Con) 40 meq 1X ONCE PO Last administered on 11/22/18at 12:41; Start 11/22/18 at 12:00; Stop 11/22/18 at 12:01; Status DC Vitals/I & O Vital Sign - Last 24 Hours 11/23/18 11/23/18 11/23/18 11/23/18 10:00 10:39 11:56 15:00 Temp 97.9 98.3 97.9 98.3 Pulse 69 72 Resp 17 22 16 17 B/P (MAP) 97/63 (74) 94/62 (73) Pulse Ox 98 99 O2 Delivery Room Air Room Air Room Air Room Air 11/23/18 11/23/18 11/23/18 11/23/18 16:58 18:21 19:00 20:00 Temp 98.2 98.2 Pulse 74 Resp 22 18 18 B/P (MAP) 95/62 (73) Pulse Ox 98 O2 Delivery Room Air Room Air Room Air Room Air 11/23/18 11/24/18 11/24/18 11/24/18 23:00 00:09 03:00 07:00 Temp 98.4 99.4 98.1 98.4 99.4 98.1 Pulse 70 64 69 Resp 18 18 17 B/P (MAP) 101/64 (76) 91/48 (62) 108/73 (85) Pulse Ox 98 98 97 99 O2 Delivery Room Air Room Air Room Air Room Air O2 Flow Rate 10.0 Intake and Output 11/23/18 11/23/18 11/24/18 15:00 23:00 07:00 Intake Total 950 ml 400 ml Output Total 350 ml 750 ml 600 ml Balance -350 ml 200 ml -200 ml GURVINDER RICKS MD Nov 24, 2018 09:21
[2018-11-24] MEDS: LACTOBACILLUS RHAMNOSUS GG 1 CAPSULE. PO SCH (10:05)
[2018-11-24 11:00] VITALS: BP 93/60
--- NOTE | 2018-11-24 11:20 | PDOC ---
Infectious Disease Note Subjective Subjective s/p I and D Feeling better Less knee pain No F/C/N/V/SOA Vital Sign Vital Signs Vital Signs Date Time Temp Pulse Resp B/P (MAP) Pulse Ox O2 Delivery O2 Flow Rate FiO2 11/24/18 10:14 22 Room Air 11/24/18 07:00 98.1 69 108/73 (85) 99 98.1 11/24/18 00:09 10.0 Physical Exam PHYSICAL EXAM GENERAL: Propped up in bed, alert, smiling HEENT: Pupils equally round, reactive. Normal conjunctivae. Oropharynx pink and moist. NECK: Supple. LUNGS: Clear to auscultation. CARDIAC: S1, S2. ABDOMEN: Soft, nontender with bowel sounds present. EXTREMITIES: No gross edema or cyanosis. Post-op dressing right knee in place. ,, opened, purulent bloody drainage, cultured DP palpable SKIN: Warm to touch. No signs of rash. NEUROLOGIC: Alert and answering questions appropriately Labs Lab Laboratory Tests Test 11/24/18 04:15 White Blood Count 9.6 x10^3/uL (4.0-11.0) Red Blood Count 3.70 x10^6/uL (4.30-5.70) Hemoglobin 11.9 g/dL (13.0-17.5) Hematocrit 34.9 % (39.0-53.0) Mean Corpuscular Volume 94 fL (79-100) Mean Corpuscular Hemoglobin 32 pg (25-35) Mean Corpuscular Hemoglobin Concent 34 g/dL (31-37) Red Cell Distribution Width 14.0 % (11.5-14.5) Platelet Count 492 x10^3/uL (140-400) Neutrophils (%) (Auto) 73 % (31-73) Lymphocytes (%) (Auto) 17 % (24-48) Monocytes (%) (Auto) 7 % (0-9) Eosinophils (%) (Auto) 2 % (0-3) Basophils (%) (Auto) 1 % (0-3) Neutrophils # (Auto) 7.1 x10^3/uL (1.8-7.7) Lymphocytes # (Auto) 1.6 x10^3/uL (1.0-4.8) Monocytes # (Auto) 0.7 x10^3/uL (0.0-1.1) Eosinophils # (Auto) 0.2 x10^3/uL (0.0-0.7) Basophils # (Auto) 0.1 x10^3/uL (0.0-0.2) Sodium Level 139 mmol/L (136-145) Potassium Level 3.9 mmol/L (3.5-5.1) Chloride Level 104 mmol/L (98-107) Carbon Dioxide Level 27 mmol/L (21-32) Anion Gap 8 (6-14) Blood Urea Nitrogen 12 mg/dL (8-26) Creatinine 1.0 mg/dL (0.7-1.3) Estimated GFR (Cockcroft-Gault) 79.8 Glucose Level 85 mg/dL (70-99) Calcium Level 8.9 mg/dL (8.5-10.1) Micro ANAEROBIC-AEROBIC CULTURE PENDING ANAEROBIC RES 1 PENDING AEROBIC CULT PENDING AEROBIC RES 1 PENDING GRAM STAIN Final Final report GRAM STAIN RES 1 Final Comment Few white blood cells. GRAM STAIN RES 2 Final Comment Gram positive cocci in pairs and chains. Rare seen Performed at: [facility] [address] [place] [id number], [place], [place] [id number] [employer] Intern: MARCO Wylie MD, Phone: [phone] Objective Assessment Right knee cellulitis and bursa abscess s/p I and D, 11/21 Leukocytosis Tobaccoism Plan Plan of Care s/p pre-op steroids Monitor renal function closely Probiotics f/u intra-op cultures Local wound care as directed d/c ok on po zyvox KSENAI PHAM MD Nov 24, 2018 11:20
[2018-11-24] MEDS ORDERED: LINE600T37 PO (11:36)
[2018-11-24] MEDS ORDERED: HYDR-2765 PO (11:36)
[2018-11-24 15:00] VITALS: BP 95/60
--- NOTE | 2018-11-24 18:29 | NUR ---
Discharge Note: GERARDO BROWNING [address] [place] [address] Discharge instructions and discharge home medications reviewed with Patient and a copy given. All questions have been answered and understanding verbalized. The following instructions and handouts were given: wound care Discontinued lines and drains: peripheral line Patient discharged to home with self care via private vehicle.
--- NOTE | 2018-11-24 22:25 | PDOC3 ---
Discharge Summary Visit Information Date of Admission: Nov 19, 2018 Date of Discharge: Nov 24, 2018 Admitting Diagnosis: Sepsis, right knee bursa abscess Final Diagnosis Problems Medical Problems: (1) Cellulitis Status: Acute Brief Hospital Course Allergies Allergies Coded Allergies Type Severity Reaction Last Updated Verified No Known Drug Allergies 11/19/18 No Vital Signs Vital Signs Date Time Temp Pulse Resp B/P (MAP) Pulse Ox O2 Delivery O2 Flow Rate FiO2 11/24/18 17:57 24 Room Air 11/24/18 15:00 97.7 79 95/60 (72) 99 97.7 11/24/18 00:09 10.0 Lab Results Laboratory Tests Test 11/23/18 07:00 11/24/18 04:15 White Blood Count 8.3 x10^3/uL (4.0-11.0) 9.6 x10^3/uL (4.0-11.0) Red Blood Count 3.59 x10^6/uL (4.30-5.70) 3.70 x10^6/uL (4.30-5.70) Hemoglobin 11.8 g/dL (13.0-17.5) 11.9 g/dL (13.0-17.5) Hematocrit 34.3 % (39.0-53.0) 34.9 % (39.0-53.0) Mean Corpuscular Volume 95 fL (79-100) 94 fL (79-100) Mean Corpuscular Hemoglobin 33 pg (25-35) 32 pg (25-35) Mean Corpuscular Hemoglobin Concent 34 g/dL (31-37) 34 g/dL (31-37) Red Cell Distribution Width 13.8 % (11.5-14.5) 14.0 % (11.5-14.5) Platelet Count 453 x10^3/uL (140-400) 492 x10^3/uL (140-400) Neutrophils (%) (Auto) 72 % (31-73) 73 % (31-73) Lymphocytes (%) (Auto) 18 % (24-48) 17 % (24-48) Monocytes (%) (Auto) 7 % (0-9) 7 % (0-9) Eosinophils (%) (Auto) 2 % (0-3) 2 % (0-3) Basophils (%) (Auto) 1 % (0-3) 1 % (0-3) Neutrophils # (Auto) 6.0 x10^3/uL (1.8-7.7) 7.1 x10^3/uL (1.8-7.7) Lymphocytes # (Auto) 1.5 x10^3/uL (1.0-4.8) 1.6 x10^3/uL (1.0-4.8) Monocytes # (Auto) 0.5 x10^3/uL (0.0-1.1) 0.7 x10^3/uL (0.0-1.1) Eosinophils # (Auto) 0.2 x10^3/uL (0.0-0.7) 0.2 x10^3/uL (0.0-0.7) Basophils # (Auto) 0.1 x10^3/uL (0.0-0.2) 0.1 x10^3/uL (0.0-0.2) Sodium Level 141 mmol/L (136-145) 139 mmol/L (136-145) Potassium Level 3.8 mmol/L (3.5-5.1) 3.9 mmol/L (3.5-5.1) Chloride Level 107 mmol/L (98-107) 104 mmol/L (98-107) Carbon Dioxide Level 27 mmol/L (21-32) 27 mmol/L (21-32) Anion Gap 7 (6-14) 8 (6-14) Blood Urea Nitrogen 12 mg/dL (8-26) 12 mg/dL (8-26) Creatinine 0.9 mg/dL (0.7-1.3) 1.0 mg/dL (0.7-1.3) Estimated GFR (Cockcroft-Gault) 90.1 79.8 Glucose Level 83 mg/dL (70-99) 85 mg/dL (70-99) Calcium Level 9.0 mg/dL (8.5-10.1) 8.9 mg/dL (8.5-10.1) Laboratory Tests Test 11/24/18 04:15 White Blood Count 9.6 x10^3/uL (4.0-11.0) Red Blood Count 3.70 x10^6/uL (4.30-5.70) Hemoglobin 11.9 g/dL (13.0-17.5) Hematocrit 34.9 % (39.0-53.0) Mean Corpuscular Volume 94 fL (79-100) Mean Corpuscular Hemoglobin 32 pg (25-35) Mean Corpuscular Hemoglobin Concent 34 g/dL (31-37) Red Cell Distribution Width 14.0 % (11.5-14.5) Platelet Count 492 x10^3/uL (140-400) Neutrophils (%) (Auto) 73 % (31-73) Lymphocytes (%) (Auto) 17 % (24-48) Monocytes (%) (Auto) 7 % (0-9) Eosinophils (%) (Auto) 2 % (0-3) Basophils (%) (Auto) 1 % (0-3) Neutrophils # (Auto) 7.1 x10^3/uL (1.8-7.7) Lymphocytes # (Auto) 1.6 x10^3/uL (1.0-4.8) Monocytes # (Auto) 0.7 x10^3/uL (0.0-1.1) Eosinophils # (Auto) 0.2 x10^3/uL (0.0-0.7) Basophils # (Auto) 0.1 x10^3/uL (0.0-0.2) Sodium Level 139 mmol/L (136-145) Potassium Level 3.9 mmol/L (3.5-5.1) Chloride Level 104 mmol/L (98-107) Carbon Dioxide Level 27 mmol/L (21-32) Anion Gap 8 (6-14) Blood Urea Nitrogen 12 mg/dL (8-26) Creatinine 1.0 mg/dL (0.7-1.3) Estimated GFR (Cockcroft-Gault) 79.8 Glucose Level 85 mg/dL (70-99) Calcium Level 8.9 mg/dL (8.5-10.1) Brief Hospital Course Mr Gonzalez is a 48yo M admitted with right knee pain. S/p I&D of infrapatellar bursa abscess on 11/21/18. Seen and examined bedside. He c/o some constipation. Pain is better controlled. ROM of his right knee is a bit better. No CP or SOB. D/w ID to continue empiric antibiotics, intraoperative culture results show rare staph. Repeat culture was negative. Patient really wishes to leave, so we will d/c on zyvox, and he will have ortho f/u. Sepsis Right knee infrapatellar bursa abscess s/p I&D 11/21/18 H/O marijuana use Greater than 30 minutes spent on d/c Discharge Information Condition at Discharge: Improved Follow Up: Weeks (1) Disposition/Orders: D/C to Home Scheduled Linezolid (Zyvox) 600 Mg Tablet, 600 MG PO BID for Staph knee infection for 14 Days, #28 Prescribed by: GURVINDER RICKS MD on 11/24/18 1136 Scheduled PRN Hydrocodone Bit/Acetaminophen (Hydrocodone-Apap 7.5-325 ) 1 Tab Tablet, 1 TAB PO PRN Q4HRS PRN for MILD PAIN 1-3 for 6 Days, #12 Prescribed by: GURVINDER RICKS MD on 11/24/18 1136 GURVINDER RICKS MD Nov 24, 2018 22:25
== END 2018-11-24 17:50 | disposition home or self-care (01) | DRG 854 ==
LOC: ER 10:02 → 5 SOUTH 12:13
PROVIDERS: ADMIT Internal Medicine; ATTEND Internal Medicine
PROC: 0M9N0ZZ Drainage of Right Knee Bursa and Ligament, Open Approach (ICD-10-PCS; principal; 2018-11-21 08:00)
DX: A41.9 Sepsis, unspecified organism (principal); L02.415 Cutaneous abscess of right lower limb; L03.115 Cellulitis of right lower limb; F17.200 Nicotine dependence, unspecified, uncomplicated; L02.435 Carbuncle of right lower limb; F12.90 Cannabis use, unspecified, uncomplicated; Z82.49 Family history of ischemic heart disease and other diseases of the circulatory system; M71.061 Abscess of bursa, right knee
CPT/HCPCS: 36415; 73564; 80048; 80053; 80202; 82565; 83605; 85025; 85027; 87071; 87075; 96365; 96375; A7015; J1100; J2001; J2270; J2405; J2543; J2704; J3010; J3370; J3490; J7030; J7040; J7050; J7120; 99285-25; A4461; G0378